=== PATIENT | female | born 1955 | race African-American/Black ===

== ENCOUNTER → 2020-10-10 | Outpatient (CLI) | payer MEDICARE, MEDICAID ==
[~2020-10-10] VITALS: Ht 167.6 cm; Wt 79.4 kg
[~2020-10-10] MED LIST: AMIT50TA3 PO; AMLO-496 PO; ATOR20TA PO; BENA40TA8 PO; CLON-818 PO; HYDR1TAB97 PO; INFL100I IV; METH2.5T PO; METH50IN6 IJ; MORP1TAB12 PO; TRAZ50TA2 PO; ZOLP5TAB5 PO
== END | disposition home or self-care (01) ==
LOC: LAB 11:09 → CATH 10-15 07:00 → EDSTATUS 10-15 14:18
PROVIDERS: ATTEND Internal Medicine Cardiovascular Disease
DX: R94.39 Abnormal result of other cardiovascular function study (principal); I10 Essential (primary) hypertension; M06.9 Rheumatoid arthritis, unspecified; J44.9 Chronic obstructive pulmonary disease, unspecified; F17.200 Nicotine dependence, unspecified, uncomplicated; J36 Peritonsillar abscess; D64.9 Anemia, unspecified; Z82.49 Family history of ischemic heart disease and other diseases of the circulatory system; Z82.5 Family history of asthma and other chronic lower respiratory diseases; Z20.822 Contact with and (suspected) exposure to COVID-19; Z53.8 Procedure and treatment not carried out for other reasons

== ENCOUNTER 2023-08-01 12:25 | Inpatient (IN) | payer MEDICARE, MEDICAID ==
[~2023-08-01] VITALS: Ht 167.6 cm; Wt 87.5 kg
[2023-08-01 01:33] VITALS: BP 137/86; PULSE 93; RESP 18; TEMP 98.6; O2SAT 100
[~2023-08-01 12:25] MED LIST changes: +AMIT50TA10 PO; -AMIT50TA3 PO; -AMLO-496 PO; +AMLO1TAB23 PO; +BENA40TA70 PO; -BENA40TA8 PO; -HYDR1TAB97 PO; -METH2.5T PO; +TRAZ-227 PO; -TRAZ50TA2 PO
[2023-08-01] MEDS ORDERED: ALBUTEROL SULF 2.5 MG/0.5ML(0.5%) NEB SOLN NEB ONE (13:45)
[2023-08-01 14:12] LABS: Basophils # (auto) 0.1 10 ^3/uL (0-0.2); Eosinophils # (auto) 0 10 ^3/uL (0-0.8); Eosinophils % (auto) 0.8 % (0.0-7.0); Lymphocytes # (auto) 2.7 10 ^3/uL (0.4-5.4); Lymphocytes % (auto) 42.9 % (10.0-50.0); Mean Corpuscular Hemoglobin 32.5 pg (28.0-32.0); Mean Corpuscular Hgb Conc. 34.2 g/dL (32.0-36.0); Monocytes # (auto) 0.6 10 ^3/uL (0-1.3); Monocytes % (auto) 9.4 % (0.0-12.0); Neutrophils # (auto) 2.8 10 ^3/uL (1.6-8.6); Neutrophils % (auto) 45.9 % (37.0-80.0); Nucleated Red Blood Cells % 0.3 %; Red Blood Cells 3.37 10^6/uL (4.0-5.20); Red Cell Distribution Width 14.3 % (11.8-14.3); White Blood Cell 6.2 10^3/uL (4.4-10.8)
[2023-08-01 14:16] LABS: Chloride 105 mmol/L (98-107); Potassium 3.8 mmol/L (3.5-5.1); Sodium 140 mmol/L (136-145)
[2023-08-01 14:17] LABS: Anion Gap 9 (5-15); Calcium 9.1 mg/dL (8.5-10.1); Carbon Dioxide 26 mmol/L (20-30)
[2023-08-01 14:22] LABS: BUN/Creatinine Ratio 10.6 (10.0-20.0); Blood Urea Nitrogen 12 mg/dL (9-23); Glucose 104 mg/dL (74-106)
[2023-08-01] MEDS ORDERED: DOCUSATE SOD 100 MG CAP PO PRN (18:30)
[2023-08-01] MEDS ORDERED: ENOXAPARIN SOD 100 MG/1 ML SYRINGE SC ONE (18:30)
[2023-08-01] MEDS ORDERED: ONDANSETRON HCL 4 MG/2 ML VIAL IV PRN (18:30)
[2023-08-01] MEDS ORDERED: ACETAMINOPHEN 325 MG TAB PO PRN (18:30)
[2023-08-01] MEDS ORDERED: IPRATROPIUM BROM 0.5 MG/2.5ML INH SOL NEB PRN (18:30)
[2023-08-01] MEDS ORDERED: FUROSEMIDE 100 MG/10ML VIAL IV ONE (18:30)
[2023-08-01] MEDS ORDERED: NITROGLYCERIN 0.4 MG SL TAB SL PRN (18:30)
[2023-08-01] MEDS ORDERED: ASPirin 81 mg TAB PO ONE (18:30)
[2023-08-01] MEDS ORDERED: MORPHINE SULFATE INJ 2 MG/ml SYRG IV PRN (18:30)
[2023-08-01] MEDS ORDERED: HYDR200T36 PO (18:36)
[2023-08-01] MEDS ORDERED: LEFL10TA17 PO (18:36)
[2023-08-01] MEDS ORDERED: MAGN241.4 PO (18:36)
[2023-08-01] MEDS ORDERED: ZOLPIDEM TARTRATE 5 MG TAB PO PRN (18:45)
[2023-08-01 18:46] VITALS: BP 148/97; PULSE 103; RESP 16; TEMP 97.8; O2SAT 98
[2023-08-01] MEDS ORDERED: HEPARIN SODIUM (PORCINE) 5000 UNITS/ML 1ML VIAL IV ONE (19:15)
[2023-08-01] MEDS ORDERED: HEPARIN DRIP/D5W 100UNITS/ML 250 ML IV SCH (20:00)
[2023-08-01 20:20] LABS: INR 1.13 (0.9-1.15); Partial Thromboplastin Time 24.4 SEC (24.5-34.5); Prothrombin Time 11.8 sec (9.3-11.8)
[2023-08-01 21:10] LABS: Basophils # (auto) 0 10 ^3/uL (0-0.2); Basophils % (auto) 0.6 % (0.0-2.0); Eosinophils # (auto) 0.1 10 ^3/uL (0-0.8); Eosinophils % (auto) 1.7 % (0.0-7.0); Hematocrit 31.9 % (36.0-46.0); Hemoglobin 10.5 g/dL (12.2-16.2); Lymphocytes # (auto) 3.1 10 ^3/uL (0.4-5.4); Mean Corpuscular Hemoglobin 30.5 pg (28.0-32.0); Mean Corpuscular Volume 92.5 fL (80.0-100.0); Monocytes # (auto) 0.6 10 ^3/uL (0-1.3); Neutrophils # (auto) 2.6 10 ^3/uL (1.6-8.6); Neutrophils % (auto) 40.7 % (37.0-80.0); Nucleated Red Blood Cells % 0.8 %; Red Blood Cells 3.45 10^6/uL (4.0-5.20); Red Cell Distribution Width 14.7 % (11.8-14.3); White Blood Cell 6.5 10^3/uL (4.4-10.8)
[2023-08-01 23:38] VITALS: PULSE 96; RESP 13; O2SAT 100
[2023-08-01] MEDS: cloNIDine HCL 0.1 MG TAB PO SCH (23:49)
[2023-08-01] MEDS: AMITRIPTYLINE HCL 25 MG TAB PO SCH (23:50)
[2023-08-02] VITALS (13 sets, daily range): BP systolic 102–132; BP diastolic 64–84; PULSE 68–96; RESP 16–20; TEMP 97.6–98.6; O2SAT 98–100
[2023-08-02] MEDS: HYDROcodone-ACET 5/325MG TAB PO PRN ×2 (01:41→09:08)
[2023-08-02] MEDS: traZODone HCL 50 MG TAB PO SCH ×2 (01:42→22:14)
[2023-08-02] MEDS ORDERED: ENOXAPARIN SOD 100 MG/1 ML SYRINGE SC SCH (06:00)
[2023-08-02] MEDS ORDERED: FUROSEMIDE 20 MG/2 ML VIAL IV SCH (06:00)
[2023-08-02 06:12] LABS: Basophils # (auto) 0 10 ^3/uL (0-0.2); Eosinophils # (auto) 0.1 10 ^3/uL (0-0.8); Lymphocytes # (auto) 2.1 10 ^3/uL (0.4-5.4); Monocytes # (auto) 0.4 10 ^3/uL (0-1.3); Neutrophils # (auto) 1.8 10 ^3/uL (1.6-8.6); White Blood Cell 4.5 10^3/uL (4.4-10.8)
[2023-08-02 06:15] LABS: Basophils % (auto) 0.7 % (0.0-2.0); Hematocrit 25.1 % (36.0-46.0); Hemoglobin 9.5 g/dL (12.2-16.2); Lymphocytes % (auto) 46.9 % (10.0-50.0); Mean Corpuscular Hemoglobin 36.9 pg (28.0-32.0); Mean Corpuscular Volume 97.2 fL (80.0-100.0); Monocytes % (auto) 8.7 % (0.0-12.0); Neutrophils % (auto) 40.7 % (37.0-80.0); Red Blood Cells 2.58 10^6/uL (4.0-5.20); Red Cell Distribution Width 14.2 % (11.8-14.3)
[2023-08-02 06:27] LABS: INR 1.14 (0.9-1.15); Partial Thromboplastin Time 27.6 SEC (24.5-34.5); Prothrombin Time 11.9 sec (9.3-11.8)
[2023-08-02 06:36] LABS: Alanine Aminotransferase 28 U/L (7-40); Albumin 3.2 g/dL (3.2-4.8); Alkaline Phosphatase 75 U/L (46-116); Anion Gap 8 (5-15); Aspartate Aminotransferase 33 U/L (13-40); BUN/Creatinine Ratio 9.5 (10.0-20.0); Blood Urea Nitrogen 11 mg/dL (9-23); Calcium 8.3 mg/dL (8.5-10.1); Carbon Dioxide 27 mmol/L (20-30); Chloride 104 mmol/L (98-107); Cholesterol 137 mg/dL (< 200); Glucose 85 mg/dL (74-106); HDL Cholesterol 33 mg/dL (40-59); LDL Cholesterol 81 mg/dL (< 100); Sodium 139 mmol/L (136-145); Triglycerides 104 mg/dL (< 150)
[2023-08-02 06:37] LABS: Bilirubin, Total 0.5 mg/dL (0.2-1.0); Total Protein 6.1 g/dL (5.7-8.2)
[2023-08-02] MEDS: FUROSEMIDE 40 MG/4 ML VIAL IV SCH ×2 (06:41→18:02)
[2023-08-02] MEDS: BENAZEPRIL HCL 10 MG TAB PO SCH (06:42)
[2023-08-02 06:43] LABS: Mean Corpuscular Hgb Conc. 37.9 g/dL (32.0-36.0)
[2023-08-02] MEDS ORDERED: HEPARIN SODIUM (PORCINE) 5000 UNITS/ML 1ML VIAL IV ONE (07:15)
[2023-08-02] MEDS ORDERED: HEPARIN DRIP/D5W 100UNITS/ML 250 ML IV SCH ×2 (07:15→23:00)
[2023-08-02 08:09] LABS: Platelet Estimate Adequate
[2023-08-02] MEDS: ASPirin 81 mg TAB PO SCH (09:00)
[2023-08-02] MEDS: MAGNESIUM OXIDE 400 MG TAB PO SCH (09:00)
[2023-08-02] MEDS: hydrOXYchloroQUINE SULFATE 200 MG TAB PO SCH (09:00)
[2023-08-02] MEDS: cloNIDine HCL 0.1 MG TAB PO SCH ×2 (09:02→22:00)
[2023-08-02] MEDS ORDERED: PANTOPRAZOLE 40 MG TAB PO SCH (10:00)
[2023-08-02] MEDS ORDERED: POTASSIUM CHL 20 Meq TABLET PO ONE (10:00)
[2023-08-02] MEDS ORDERED: ALBUTEROL SULF 2.5 MG/0.5ML(0.5%) NEB SOLN NEB PRN (10:45)
[2023-08-02] MEDS: IPRATROPIUM BROM 0.5 MG/2.5ML INH SOL NEB SCH ×2 (11:44→19:05)
[2023-08-02] MEDS: ALBUTEROL SULF 2.5 MG/0.5ML(0.5%) NEB SOLN NEB PRN ×2 (11:44→19:05)
[2023-08-02] MEDS: OXYCODONE W/ ACETAMINOPHEN 5/325MG TABLET PO PRN ×2 (12:27→23:02)
[2023-08-02 15:17] LABS: Urine Bacteria NONE SEEN /hpf (None Seen); Urine Blood TRACE /uL (Negative); Urine Clarity Clear (Clear); Urine Color Colorless (Yellow); Urine Hyaline Cast FEW /lpf (0 - 2); Urine Protein, UAD 2+ (Negative); Urine Specific Gravity 1.028 (1.001-1.035); Urine Urobilinogen Normal (Negative); Urine WBC 3 /hpf (0 - 5); Urine pH 5.5 (5.0-8.0)
[2023-08-02] MEDS ORDERED: PERCOT PO (16:12)
[2023-08-02] MEDS: ATORVASTATIN 20 MG TAB PO SCH (17:57)
[2023-08-02 21:50] LABS: INR 1.16 (0.9-1.15); Prothrombin Time 12.1 sec (9.3-11.8)
[2023-08-02 22:00] LABS: Partial Thromboplastin Time 126.1 SEC (24.5-34.5)
[2023-08-02] MEDS: POTASSIUM CHL 20 Meq TABLET PO SCH (22:14)
[2023-08-02] MEDS: AMITRIPTYLINE HCL 25 MG TAB PO SCH (22:14)
[2023-08-03] VITALS (26 sets, daily range): BP systolic 91–122; BP diastolic 61–84; PULSE 79–99; RESP 14–22; TEMP 97.7–98.1; O2SAT 96–100
[2023-08-03] MEDS: FUROSEMIDE 40 MG/4 ML VIAL IV SCH (05:24)
[2023-08-03] MEDS: BENAZEPRIL HCL 10 MG TAB PO SCH (06:28)
[2023-08-03] MEDS: ALBUTEROL SULF 2.5 MG/0.5ML(0.5%) NEB SOLN NEB PRN (06:29)
[2023-08-03] MEDS: IPRATROPIUM BROM 0.5 MG/2.5ML INH SOL NEB SCH ×3 (06:30→19:15)
[2023-08-03 07:05] LABS: Anion Gap 7 (5-15); Carbon Dioxide 29 mmol/L (20-30); Chloride 103 mmol/L (98-107); Potassium 3.6 mmol/L (3.5-5.1); Sodium 139 mmol/L (136-145)
[2023-08-03 07:06] LABS: Calcium 8.3 mg/dL (8.7-10.4)
[2023-08-03 07:11] LABS: BUN/Creatinine Ratio 9.4 (10.0-20.0); Blood Urea Nitrogen 12 mg/dL (9-23); Glucose 97 mg/dL (74-106); Magnesium 1.7 mg/dL (1.6-2.6)
[2023-08-03 07:39] LABS: INR 1.19 (0.9-1.15); Prothrombin Time 12.4 sec (9.3-11.8)
[2023-08-03 07:43] LABS: Partial Thromboplastin Time > 139.0 SEC (24.5-34.5)
[2023-08-03 07:47] LABS: Basophils # (auto) 0.1 10 ^3/uL (0-0.2); Basophils % (auto) 1.4 % (0.0-2.0); Eosinophils # (auto) 0.2 10 ^3/uL (0-0.8); Eosinophils % (auto) 4.6 % (0.0-7.0); Hematocrit 29.3 % (36.0-46.0); Hemoglobin 9.4 g/dL (12.2-16.2); Lymphocytes # (auto) 2.4 10 ^3/uL (0.4-5.4); Lymphocytes % (auto) 54.3 % (10.0-50.0); Mean Corpuscular Hemoglobin 29.8 pg (28.0-32.0); Mean Corpuscular Hgb Conc. 32.2 g/dL (32.0-36.0); Mean Corpuscular Volume 92.5 fL (80.0-100.0); Monocytes # (auto) 0.4 10 ^3/uL (0-1.3); Neutrophils # (auto) 1.3 10 ^3/uL (1.6-8.6); Neutrophils % (auto) 29.7 % (37.0-80.0); Nucleated Red Blood Cells % 0.3 %; Red Blood Cells 3.17 10^6/uL (4.0-5.20); Red Cell Distribution Width 14.6 % (11.8-14.3); White Blood Cell 4.3 10^3/uL (4.4-10.8)
[2023-08-03] MEDS: MAGNESIUM OXIDE 400 MG TAB PO SCH (08:57)
[2023-08-03] MEDS: POTASSIUM CHL 20 Meq TABLET PO SCH (08:58)
[2023-08-03] MEDS: ASPirin 81 mg TAB PO SCH (08:58)
[2023-08-03] MEDS: hydrOXYchloroQUINE SULFATE 200 MG TAB PO SCH (09:03)
[2023-08-03] MEDS: OXYCODONE W/ ACETAMINOPHEN 5/325MG TABLET PO PRN ×2 (09:03→18:47)
[2023-08-03] MEDS: cloNIDine HCL 0.1 MG TAB PO SCH ×2 (09:03→22:00)
[2023-08-03] MEDS ORDERED: HEPARIN DRIP/D5W 100UNITS/ML 250 ML IV SCH (09:15)
[2023-08-03] MEDS ORDERED: IODIXANOL 320MG/ML 100ML BTL IV ONE (14:27)
[2023-08-03] MEDS ORDERED: HEPARIN IN NS 1000Units/500mL 1,500 ML ONE (14:27)
[2023-08-03] MEDS ORDERED: LIDOCAINE 2%HCL (LOCAL ANESTH.) INJ 20ML MDV ONE (14:27)
[2023-08-03] MEDS ORDERED: ANGIOMAX 250 MG VIAL IV ONE (15:02)
[2023-08-03] MEDS ORDERED: HEPARIN SODIUM (PORCINE) 5000 UNITS/ML 1ML VIAL ONE (15:02)
[2023-08-03] MEDS ORDERED: MIDAZOLAM HCL 2MG/2ML 2ml VIAL (1mg/ml) ONE (15:03)
[2023-08-03] MEDS ORDERED: VERAPAMIL 2.5MG/ML INJ 2ML VIAL IV ONE (15:03)
[2023-08-03] MEDS ORDERED: fentaNYL CITRATE 100 MCG/2 ML VL ONE (15:03)
[2023-08-03] MEDS ORDERED: SODIUM CHL 0.9% 0 ML ONE (15:04)
[2023-08-03] MEDS: RIVAROXABAN 20 MG TAB PO SCH (18:33)
[2023-08-03] MEDS: ATORVASTATIN 20 MG TAB PO SCH (18:33)
[2023-08-03 18:59] LABS: INR 1.18 (0.9-1.15); Prothrombin Time 12.3 sec (9.3-11.8)
[2023-08-03 19:04] LABS: Partial Thromboplastin Time > 139.0 SEC (24.5-34.5)
[2023-08-03] MEDS: traZODone HCL 50 MG TAB PO SCH (22:11)
[2023-08-03] MEDS: AMITRIPTYLINE HCL 25 MG TAB PO SCH (22:12)
[2023-08-04] VITALS (15 sets, daily range): BP systolic 108–120; BP diastolic 67–81; PULSE 66–106; RESP 16–22; TEMP 97.6–99.1; O2SAT 95–100
[2023-08-04] MEDS: OXYCODONE W/ ACETAMINOPHEN 5/325MG TABLET PO PRN ×4 (01:13→23:49)
[2023-08-04 06:08] LABS: Anion Gap 5 (5-15); Carbon Dioxide 29 mmol/L (20-30); Chloride 102 mmol/L (98-107); Sodium 136 mmol/L (136-145)
[2023-08-04 06:10] LABS: Calcium 8.5 mg/dL (8.5-10.1)
[2023-08-04 06:15] LABS: BUN/Creatinine Ratio 9.8 (10.0-20.0); Blood Urea Nitrogen 12 mg/dL (9-23); Glucose 99 mg/dL (74-106)
[2023-08-04] MEDS: POTASSIUM CHL 20 Meq TABLET PO SCH (06:22)
[2023-08-04] MEDS: BENAZEPRIL HCL 10 MG TAB PO SCH (06:23)
[2023-08-04] MEDS: FUROSEMIDE 40 MG/4 ML VIAL IV SCH (06:23)
[2023-08-04] MEDS: IPRATROPIUM BROM 0.5 MG/2.5ML INH SOL NEB SCH ×3 (07:13→18:11)
[2023-08-04] MEDS: ALBUTEROL SULF 2.5 MG/0.5ML(0.5%) NEB SOLN NEB PRN (07:13)
[2023-08-04] MEDS: hydrOXYchloroQUINE SULFATE 200 MG TAB PO SCH (08:05)
[2023-08-04] MEDS: cloNIDine HCL 0.1 MG TAB PO SCH ×2 (08:07→22:05)
[2023-08-04] MEDS: MAGNESIUM OXIDE 400 MG TAB PO SCH (08:07)
[2023-08-04 09:51] LABS: Hepatitis B Surface Antigen Negative (Negative)
[2023-08-04] MEDS: methylPREDNISolone SOD SUCC 40 MG/ML VL IV SCH ×2 (10:00→21:58)
[2023-08-04] MEDS ORDERED: methylPREDNISolone SOD SUCC 40 MG/ML VL IV ONE (10:00)
[2023-08-04] MEDS ORDERED: levoFLOXacin 500 MG TAB PO SCH (10:00)
[2023-08-04 10:12] LABS: Hepatitis C Antibody Negative (Negative)
[2023-08-04] MEDS: ATORVASTATIN 20 MG TAB PO SCH (17:25)
[2023-08-04] MEDS: RIVAROXABAN 20 MG TAB PO SCH (17:25)
[2023-08-04] MEDS: AMITRIPTYLINE HCL 25 MG TAB PO SCH (21:54)
[2023-08-04] MEDS: DOXYCYCLINE 100 MG TAB/CAP PO SCH (22:05)
[2023-08-04] MEDS: traZODone HCL 50 MG TAB PO SCH (23:49)
[2023-08-05] VITALS (10 sets, daily range): BP systolic 116–120; BP diastolic 71–83; PULSE 82–96; RESP 16–20; TEMP 97.6–98.1; O2SAT 98–100
[2023-08-05] MEDS: IPRATROPIUM BROM 0.5 MG/2.5ML INH SOL NEB SCH ×2 (06:01→11:49)
[2023-08-05] MEDS: BENAZEPRIL HCL 10 MG TAB PO SCH (06:33)
[2023-08-05] MEDS: POTASSIUM CHL 20 Meq TABLET PO SCH (06:33)
[2023-08-05] MEDS: FUROSEMIDE 40 MG/4 ML VIAL IV SCH (06:34)
[2023-08-05 07:31] LABS: Anion Gap 8 (5-15); Carbon Dioxide 24 mmol/L (20-30); Chloride 100 mmol/L (98-107); Potassium 5.3 mmol/L (3.5-5.1); Sodium 132 mmol/L (136-145)
[2023-08-05 07:33] LABS: Calcium 8.9 mg/dL (8.5-10.1)
[2023-08-05 07:38] LABS: BUN/Creatinine Ratio 17.7 (10.0-20.0); Blood Urea Nitrogen 20 mg/dL (9-23); Glucose 126 mg/dL (74-106)
[2023-08-05] MEDS: OXYCODONE W/ ACETAMINOPHEN 5/325MG TABLET PO PRN (09:34)
[2023-08-05] MEDS: methylPREDNISolone SOD SUCC 40 MG/ML VL IV SCH (09:34)
[2023-08-05] MEDS: cloNIDine HCL 0.1 MG TAB PO SCH (09:35)
[2023-08-05] MEDS: MAGNESIUM OXIDE 400 MG TAB PO SCH (09:35)
[2023-08-05] MEDS: hydrOXYchloroQUINE SULFATE 200 MG TAB PO SCH (09:35)
[2023-08-05] MEDS: DOXYCYCLINE 100 MG TAB/CAP PO SCH (09:35)
[2023-08-05] MEDS ORDERED: AZITHROMYCIN 250 MG TAB PO SCH (10:00)
[2023-08-05] MEDS ORDERED: SODIUM ZIRCONIUM CYCL 10 GM PAK PO ONE (11:30)
[2023-08-05] MEDS ORDERED: DOX100T PO (11:34)
[2023-08-05] MEDS ORDERED: PRED20TA2 PO (11:34)
[2023-08-05] MEDS ORDERED: RIV20T PO (11:34)
[2023-08-05] MEDS: ATORVASTATIN 20 MG TAB PO SCH (18:10)
[2023-08-05] MEDS: RIVAROXABAN 20 MG TAB PO SCH (18:10)
[2023-08-09 16:07] LABS: Vitamin B1, Whole Blood 50.8 nmol/L (66.5-200.0)
== END 2023-08-05 19:00 | disposition home or self-care (01) | DRG 177 ==
LOC: ER 12:25 → TELE 18:24 → TELE-CENTR 23:44
PROVIDERS: ADMIT Nurse Practitioner Family; ATTEND Internal Medicine
PROC: 4A023N7 Measurement of Cardiac Sampling and Pressure, Left Heart, Percutaneous Approach (ICD-10-PCS; principal; 2023-08-03)
PROC: B211YZZ Fluoroscopy of Multiple Coronary Arteries using Other Contrast (ICD-10-PCS; 2023-08-03)
PROC: B215YZZ Fluoroscopy of Left Heart using Other Contrast (ICD-10-PCS; 2023-08-03)
DX: J15.69 Pneumonia due to other Gram-negative bacteria (principal); I21.A1 Myocardial infarction type 2; I50.33 Acute on chronic diastolic (congestive) heart failure; J96.20 Acute and chronic respiratory failure, unspecified whether with hypoxia or hypercapnia; I13.0 Hypertensive heart and chronic kidney disease with heart failure and stage 1 through stage 4 chronic kidney disease, or unspecified chronic kidney disease; J44.1 Chronic obstructive pulmonary disease with (acute) exacerbation; J44.0 Chronic obstructive pulmonary disease with (acute) lower respiratory infection; J84.9 Interstitial pulmonary disease, unspecified; J15.9 Unspecified bacterial pneumonia; E66.9 Obesity, unspecified; E78.5 Hyperlipidemia, unspecified; M06.9 Rheumatoid arthritis, unspecified; J43.8 Other emphysema; N18.9 Chronic kidney disease, unspecified; I73.9 Peripheral vascular disease, unspecified; R73.03 Prediabetes; G47.00 Insomnia, unspecified; F41.9 Anxiety disorder, unspecified; Z90.49 Acquired absence of other specified parts of digestive tract; Z79.01 Long term (current) use of anticoagulants; Z86.711 Personal history of pulmonary embolism; Z68.31 Body mass index [BMI] 31.0-31.9, adult; Z86.718 Personal history of other venous thrombosis and embolism
CPT/HCPCS: 36415; 71045; 71275; 80048; 80053; 80061; 81001; 83036; 83735; 83880; 84132; 84425; 84443; 84484; 85025; 85379; 85610; 85730; 86803; 86850; 86900; 86901; 87340; 93005; 93306; 93458; 93970; 94640; 97163; 99152; 99291; G0378; J2250; Q9967

== ENCOUNTER 2024-09-01 22:22 | Inpatient (IN) | payer MEDICARE, MEDICAID ==
[~2024-09-01] VITALS: Ht 167.6 cm; Wt 80.1 kg
[~2024-09-01 22:22] MED LIST changes: -AMIT50TA10 PO; +AMIT50TA12 PO; -AMLO1TAB23 PO; -BENA40TA70 PO; +BENA40TA71 PO; +DOX100T PO; +HYDR200T36 PO; -INFL100I IV; +LEFL10TA17 PO; +MAGN241.4 PO; -METH50IN6 IJ; -MORP1TAB12 PO; +PERCOT PO; +PRED20TA2 PO; +RIV20T PO
--- NOTE | 2024-09-01 23:49 | ED.PDOC ---
SOB-HPI HPI Comments 69-year-old female came to ER for shortness of breath. Patient does have history of COPD, currently at 5 liters/minute, saturating at 98% at 5lpm. Complaining of shortness a breath, chest tightness, in worsening by pedal edema for the past 2 days. Noted shortness of breath on exertion. Patient never diagnosed with congestive heart failure. 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 History Family History Family History: Reviewed,noncontributory to illness Social History Smoker: Cigarettes Alcohol: Denies ETOH Use Drugs: Denies Drug Use Lives In: Home Constitutional: denies: chills, diaphoresis, fatigue, fever, malaise, sweats, weakness, others EENTM: denies: blurred vision, double vision, ear bleeding, ear discharge, ear drainage, ear pain, ear ringing, eye pain, eye redness, hearing loss, mouth pain, mouth swelling, nasal discharge, nose bleeding, nose congestion, nose pain, photophobia, tearing, throat pain, throat swelling, voice changes, others Respiratory: reports: orthopnea, SOB at rest, shortness of breath, SOB with excertion; denies: cough, hemoptysis, stridor, wheezing, others Cardiovascular: reports: chest pain, edema; denies: dizzy spells, diaphoresis, Dyspnea on exertion, irregular heart beat, left arm pain, lightheadedness, palpitations, PND, syncope, others Gastrointestinal: denies: abdomen distended, abdominal pain, blood streaked bowels, constipated, diarrhea, dysphagia, difficulty swallowing, hematemesis, melena, nausea, poor appetite, poor fluid intake, rectal bleeding, rectal pain, vomiting, others Genitourinary: denies: abnormal vagina bleeding, burning, dyspareunia, dysuria, flank pain, frequency, hematuria, incontinence, pain, , vagina discharge, urgency, others Neurological: denies: dizziness, fainting, headache, left sided numbness, left sided weakness, numbness, paresthesia, pre-existing deficit, right sided numbness, right sided weakness, seizure, speech problems, tingling, tremors, weakness, others Musculoskeletal: denies: back pain, gout, joint pain, joint swelling, muscle pain, muscle stiffness, neck pain, others Integumetry: denies: bruises, change in color, change in hair/nails, dryness, laceration, lesions, lumps, rash, wounds, others Allergic/Immunocompromised: denies: Difficulty Healing, Frequent Infections, Hives, Itching, others Hematologic/Lymphatic: denies: anemia, blood clots, easy bleeding, easy bruising, swollen glands, others Endocrine: denies: excessive hunger, excessive sweating, excessive thirst, excessive urination, flushing, intolerance to cold, intolerance to heat, unexplained weight gain, unexplained weight loss, others Psychiatric: denies: anxiety, bipolar disorder, depression, hopeless, panic disorder, schizophrenia, sleepless, suicidal, others Physical Exam General Appearance: Moderate Distress, Obese HEENT: Normal ENT Inspection, Pharynx Normal, TMs Normal Neck: Full Range of Motion, Non-Tender, Normal, Normal Inspection Respiratory: Chest Non-Tender, Decreased Breath Sounds, Lungs Clear, No Accessory Muscle Use, Other (Slightly labored breathing) Cardiovascular: No JVD, No Murmur, No Gallop, Normal Peripheral Pulses, Regular Rate/Rhythm, Other (Lower extremity edema) Breast Exam: Deferred Gastrointestinal: No Organomegaly, Non Tender, No Pulsatile Mass, Normal Bowel Sounds, Soft Genitalia: Deferred Pelvic: Deferred Rectal: Deferred Extremities: No calf tenderness, Normal capillary refill, Normal inspection, Normal range of motion, Non-tender, No pedal edema Musculoskeletal : Apperance: Normal 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 Was a procedure done?: No Differential Dx Differential Diagnosis: Anxiety, Asthma, CHF, COPD, Myocardial infarction, Panic Attack, Pneumonia, Respiratory Distress X-Ray, Labs, Meds, VS Vital Signs Date Time Temp Pulse Resp B/P (MAP) Pulse Ox O2 Delivery O2 Flow Rate FiO2 09/02/24 03:51 97.7 86 22 140/93 (109) 99 97.7 09/02/24 03:00 Nasal Cannula* 5 40 09/01/24 23:49 96 09/01/24 22:50 96 09/01/24 22:25 98 Nasal Cannula* 5 40 09/01/24 22:25 97.7 90 18 138/83 (101) 98 Lab Test 09/02/24 04:28 09/02/24 04:01 Range/Units White Blood Count Pending Red Blood Count Pending Hemoglobin Pending Hematocrit Pending Mean Corpuscular Volume Pending Mean Corpuscular Hemoglobin Pending Mean Corpuscular Hemoglobin Concent Pending Red Cell Distribution Width Pending Platelet Count Pending Mean Platelet Volume Pending Neutrophils (%) (Auto) Pending Lymphocytes (%) (Auto) Pending Monocytes (%) (Auto) Pending Basophils (%) (Auto) Pending Neutrophils # (Auto) Pending Lymphocytes # (Auto) Pending Monocytes # (Auto) Pending Prothrombin Time Pending Prothrombin Time INR Pending Activated Partial Thromboplast Time Pending Sodium Level Pending Potassium Level Pending Chloride Level Pending Carbon Dioxide Level Pending Anion Gap Pending Blood Urea Nitrogen Pending Creatinine Pending Glomerular Filtration Rate Calc Pending BUN/Creatinine Ratio Pending Serum Glucose Pending Calcium Level Pending Magnesium Level Pending Total Bilirubin Pending Aspartate Amino Transferase (AST) Pending Alanine Aminotransferase (ALT) Pending Alkaline Phosphatase Pending Troponin I High Sensitivity Pending B-Type Natriuretic Peptide Pending Total Protein Pending Albumin Pending Urine Color Yellow Yellow Urine Clarity Clear Clear Urine pH 6.5 5.0-9.0 Urine Specific [place] 1.036 H 1.001-1.035 Urine Protein 3+ H Negative Urine Ketones Trace Negative Urine Blood 1+ H Negative /uL Urine Nitrite Negative Negative Urine Bilirubin Negative Negative Urine Urobilinogen 3 H Negative mg/dL Urine Leukocyte Esterase Negative Negative /uL Urine RBC 49 0 - 4 /hpf Urine Microscopic WBC 21 H 0-5 /HPF Urine Squamous Epithelial Cells Mod <5 /hpf Urine Transitional Epithelial Cells Few <2 /hpf Urine Renal Epithelial Cells Few None Seen /hpf Urine Bacteria Few H None Seen /hpf Urine Hyaline Casts Many 0 - 2 /lpf Urine Mucus Few None Seen Urine Glucose Normal Normal mg/dL PROCEDURE(s): CXRP - CHEST PORTABLE REASON: SOB ORDER NUMBER(s): [id number], ACCESSION NUMBER(s): [id number] Examination: CXRP Clinical Indication: SOB Comparison: None. Technique: Frontal view of chest radiograph Findings: Haziness seen in the right lower zone. Cardiomegaly is noted No acute osseous abnormality. Impression: 1. Right lower zone haziness, likely infiltrates/artifacts were due to overlying soft tissues. Labs are pending. The patient received DuoNeb Rocephin and Solu-Medrol for acute exacerbation of COPD requiring high oxygen levels. The patient will be admitted to the hospitalist for further evaluation and care. Time of 1ST Reevaluation: 23:43 Reevaluation 1ST: Unchanged Patient Education/Counseling: Diagnosis, Treatment Family Education/Counseling: No Family Present Departure 1 Departure Time of Disposition: 04:51 Impression: Primary Impression: ACS (acute coronary syndrome) Additional Impressions: COPD exacerbation CHF (congestive heart failure) Qualified Codes: I50.9 - Heart failure, unspecified Peripheral edema Disposition: ADMITTED INPATIENT Admit to: Tele Condition: Guarded Critical Care Note Critical Care Time?: Yes (35 min-critical care time only) Critical care comment: Shortness of breath Stability Stability form required: No Heart Score Heart Score: Heart Score Response (Comments) Value History Moderate Suspicious 1 EKG Repolarization Disturb 1 Age >65 2 Risk Factors >3 or Hx ASHD 2 Troponin Normal limit 0 Total 6 I personally scribed for SHADIA CROCKETT MD ([email or web address]) on 09/01/24 at 23:49. Electronically submitted by Miguel Angel Jhaveri ([email or web address]). I personally scribed for SHADIA CROCKETT MD ([email or web address]) on 09/02/24 at 04:42. Electronically submitted by Miguel Angel Jhaveri ([email or web address]). SHADIA CROCKETT MD Sep 01, 2024 23:49
[2024-09-02] VITALS (9 sets, daily range): BP systolic 130–148; BP diastolic 79–96; PULSE 86–99; RESP 15–19; TEMP 97.6–98; O2SAT 99–100
--- NOTE | 2024-09-02 03:52 | DVH ---
Examination: CXRP Clinical Indication: SOB Comparison: None. Technique: Frontal view of chest radiograph Findings: Haziness seen in the right lower zone. Cardiomegaly is noted No acute osseous abnormality. Impression: 1. Right lower zone haziness, likely infiltrates/artifacts were due to overlying soft tissues. 2. Cardiomegaly. Electronically Signed 09/02/2024 03:51 Melyssa Flynn
[2024-09-02 04:38] LABS: Urine Bacteria FEW /hpf (None Seen); Urine Blood 1+ /uL (Negative); Urine Clarity Clear (Clear); Urine Color Yellow (Yellow); Urine Hyaline Cast MANY /lpf (0 - 2); Urine Mucus FEW (None Seen); Urine Protein, UAD 3+ (Negative); Urine Specific Gravity 1.036 (1.001-1.035); Urine Squamous Epithelial Cell MOD /hpf (<5); Urine Urobilinogen 3 mg/dL (Negative); Urine WBC 21 /HPF (0-5); Urine pH 6.5 (5.0-9.0)
[2024-09-02 05:17] LABS: INR 1.29 (0.9-1.15); Partial Thromboplastin Time 30.2 SEC (24.5-34.5); Prothrombin Time 13.3 sec (9.3-11.8)
[2024-09-02 05:30] LABS: Albumin 3.7 g/dL (3.2-4.8); Alkaline Phosphatase 101 U/L (46-116); Carbon Dioxide 25 mmol/L (20-31); Magnesium 1.7 mg/dL (1.6-2.6)
[2024-09-02 05:31] LABS: Anion Gap 7 (5-15); BUN/Creatinine Ratio 9.8 (10.0-20.0); Blood Urea Nitrogen 11 mg/dL (9-23); Sodium 140 mmol/L (136-145); Total Protein 6.2 g/dL (5.7-8.2)
[2024-09-02 05:32] LABS: Bilirubin, Total 0.5 mg/dL (0.2-1.0)
[2024-09-02 05:57] LABS: Alanine Aminotransferase 47 U/L (7-40); Aspartate Aminotransferase 53 U/L (13-40); Chloride 108 mmol/L (98-107); Glucose 118 mg/dL (74-106); Potassium 3.4 mmol/L (3.5-5.1)
[2024-09-02 07:02] LABS: Basophils # (auto) 0 10 ^3/uL (0-0.2); Basophils % (auto) 0.8 % (0.0-2.0); Eosinophils # (auto) 0.1 10 ^3/uL (0-0.8); Eosinophils % (auto) 2.9 % (0.0-7.0); Hematocrit 32.9 % (36.0-46.0); Hemoglobin 10.7 g/dL (12.2-16.2); Mean Corpuscular Hemoglobin 31.5 pg (28.0-32.0); Mean Corpuscular Volume 96.5 fL (80.0-100.0); Monocytes # (auto) 0.3 10 ^3/uL (0-1.3); Monocytes % (auto) 7.9 % (0.0-12.0); Neutrophils # (auto) 1.6 10 ^3/uL (1.6-8.6); Neutrophils % (auto) 38.4 % (37.0-80.0); Nucleated Red Blood Cells % 0.4 %; Platelet Count (auto) 149 10^3/uL (140-450); Red Blood Cells 3.41 10^6/uL (4.0-5.20); Red Cell Distribution Width 16.5 % (11.8-14.3); White Blood Cell 4.1 10^3/uL (4.4-10.8)
[2024-09-02 07:06] LABS: Mean Corpuscular Hgb Conc. 32.7 g/dL (32.0-36.0)
--- NOTE | 2024-09-02 09:37 | DVHHP2 ---
History of Present Illness Reason for Visit: sob and cp History of Present Illness 69-year-old female past medical history COPD on 5 L nasal cannula at home hypertension insomnia hyperlipidemia normal, MO, rheumatoid arthritis, on Xarelto for a blood clot in the legs and she states in her throat surgical history gallbladder surgery chief complaint patient was comes in with shortness of the breath chest pain and swelling to her legs has been going on for two days. Patient states he was shortness of the breath on exertion. She has been goes to have a follow up appointment with Dr. Michelle this coming up Tuesday but she states her symptoms were so bad that she had to come to the ER for evaluation. Patient states she was taking her medications as prescribed. When evaluating patient's chart to imaging it appears patient had an echocardiogram last year August 02, 2023 EF was 50% at that time CBC was unremarkable hemoglobin was 10.7 32.9 potassium was 3.4 chloride was 108 creatinine was 1.12 glucose was 118 AST was 53 ALT was 47 troponin was positive BNP was 998. Chest x-ray showed right lung zone pneumonia. With these findings we will admit and ask for Cardiology evaluation we will provide medication for heart failure Past Medical History See HPI above Past Surgical History See HPI above Family History Reviewed, non-contributory to the management of this case. Past Social History The patient lives at home, denies smoking, alcohol or illicit drugs abuse. Review of Systems Constitutional: No: Fever, Chills, Sweats, Weakness, Malaise, Other Eyes: No: Pain, Vision change, Conjunctivae inflammation, Eyelid inflammation, Other, Redness ENT: No: Ear pain, Ear discharge, Nose pain, Nose discharge, Nose congestion, Mouth pain, Mouth swelling, Throat pain, Throat swelling, Other Respiratory: Shortness of breath, SOB with excertion; No: Cough, Dry, Wheezing, Hemoptysis, Pleuritic Pain, Sputum, Wheezing, Other Cardiovascular: No: Chest Pain, Palpitations, Orthopnea, Paroxysmal Noc. Dys pnea, Edema, Lt Headedness, Other Gastrointestinal: No: Nausea, Vomiting, Abdominal Pain, Diarrhea, Constipation, Melena, Hematochezia, Other Genitourinary: No Dysuria, No Frequency, No Incontinence, No Hematuria, No Retention, No Other Musculoskeletal: No: other, neck pain, shoulder pain, arm pain, back pain, hand pain, leg pain, foot pain Skin: No: Rash, Lesions, Jaundice, Bruising, Other Neurological: No: Weakness, Numbness, Incoordination, Change in speech, Confusion, Seizures, Other Allergies: Coded Allergies: NO KNOWN ALLERGIES (Unverified , 10/10/20) Exam Vital Signs Vital Signs Date Time Temp Pulse Resp B/P (MAP) Pulse Ox O2 Delivery O2 Flow Rate FiO2 09/02/24 08:58 86 15 100 Nasal Cannula* 6 44 09/02/24 08:00 97.8 152/97 (115) 97.8 General Appearance: Alert, Oriented X3, Cooperative, mild distress HEENT: Atraumatic, PERRLA, EOMI, Mucous membr. moist/pink Respiratory: Normal air movement, Other (Coarse wheezes throughout) Cardiovascular: Regular rate, Normal S1, Normal S2, No murmurs Abdominal: Normal bowel sounds, Soft, No tenderness, No hepatospenomegaly, No masses Extremities: No clubbing, No cyanosis, No edema, Normal pulses, No tenderness/swelling Skin: No rashes, No breakdown, No significant lesion Neuro: Other (neuro non focal spencer equally strong ) Psych/Mental Status: Mental status NL, Mood NL Labs/Xrays Chest x-ray shows right lung pneumonia and cardiomegaly I reviewed labs, imaging CT scan abdomen pelvis, EKG and all diagnostic studies on this patient from ED records and the medical chart Labs Test 09/02/24 04:28 09/02/24 04:01 Range/Units White Blood Count 4.1 L 4.4-10.8 10^3/uL Red Blood Count 3.41 L 4.0-5.20 10^6/uL Hemoglobin 10.7 L 12.2-16.2 g/dL Hematocrit 32.9 L 36.0-46.0 % Mean Corpuscular Volume 96.5 80.0-100.0 fL Mean Corpuscular Hemoglobin 31.5 28.0-32.0 pg Mean Corpuscular Hemoglobin Concent 32.7 32.0-36.0 g/dL Red Cell Distribution Width 16.5 H 11.8-14.3 % Platelet Count 149 140-450 10^3/uL Mean Platelet Volume 9.1 6.9-10.8 fL Neutrophils (%) (Auto) 38.4 37.0-80.0 % Lymphocytes (%) (Auto) 50.0 10.0-50.0 % Monocytes (%) (Auto) 7.9 0.0-12.0 % Eosinophils (%) (Auto) 2.9 0.0-7.0 % Basophils (%) (Auto) 0.8 0.0-2.0 % Neutrophils # (Auto) 1.6 1.6-8.6 10 ^3/uL Lymphocytes # (Auto) 2.0 0.4-5.4 10 ^3/uL Monocytes # (Auto) 0.3 0-1.3 10 ^3/uL Eosinophils # (Auto) 0.1 0-0.8 10 ^3/uL Basophils # (Auto) 0 0-0.2 10 ^3/uL Nucleated Red Blood Cells 0.4 % Prothrombin Time 13.3 H 9.3-11.8 sec Prothrombin Time INR 1.29 H 0.9-1.15 Activated Partial Thromboplast Time 30.2 24.5-34.5 SEC Sodium Level 140 136-145 mmol/L Potassium Level 3.4 L 3.5-5.1 mmol/L Chloride Level 108 H 98-107 mmol/L Carbon Dioxide Level 25 20-31 mmol/L Anion Gap 7 5-15 Blood Urea Nitrogen 11 9-23 mg/dL Creatinine 1.12 H 0.550-1.02 mg/dL Glomerular Filtration Rate Calc 54 >90 mL/min BUN/Creatinine Ratio 9.8 L 10.0-20.0 Serum Glucose 118 H 74-106 mg/dL Calcium Level 9.0 8.7-10.4 mg/dL Magnesium Level 1.7 1.6-2.6 mg/dL Total Bilirubin 0.5 0.2-1.0 mg/dL Aspartate Amino Transferase (AST) 53 H 13-40 U/L Alanine Aminotransferase (ALT) 47 H 7-40 U/L Alkaline Phosphatase 101 46-116 U/L Troponin I High Sensitivity 91 *H </=34 ng/L B-Type Natriuretic Peptide 993.85 0-100 pg/mL Total Protein 6.2 5.7-8.2 g/dL Albumin 3.7 3.2-4.8 g/dL Urine Color Yellow Yellow Urine Clarity Clear Clear Urine pH 6.5 5.0-9.0 Urine Specific [place] 1.036 H 1.001-1.035 Urine Protein 3+ H Negative Urine Ketones Trace Negative Urine Blood 1+ H Negative /uL Urine Nitrite Negative Negative Urine Bilirubin Negative Negative Urine Urobilinogen 3 H Negative mg/dL Urine Leukocyte Esterase Negative Negative /uL Urine RBC 49 0 - 4 /hpf Urine Microscopic WBC 21 H 0-5 /HPF Urine Squamous Epithelial Cells Mod <5 /hpf Urine Transitional Epithelial Cells Few <2 /hpf Urine Renal Epithelial Cells Few None Seen /hpf Urine Bacteria Few H None Seen /hpf Urine Hyaline Casts Many 0 - 2 /lpf Urine Mucus Few None Seen Urine Glucose Normal Normal mg/dL Assessment/Plan Assessment/Plan acute community bacterial acquired pna found on cxr ordered ceftriaxone and azithromax o2 to keep sats >92% acute diastolic systolic heart failure bnp elevated cxr cardiomegaly ordered lasix bid ordered echo fu results ordered cards consult fu results strict i/o's acute copd exacerbation ordered albuterol/atrovent prn sob pulm consult fu recs acute unstable angina r/o nstemi with hx of mi current trop elevated ekg no stemi ordered asa and atorvastatin ordered cards consult fu results cont home dose xarelto acute hypokalemia ordered mag and phos fu results acute transaminitis acute felisa Acute bilateral lower extremity edema Order ultrasound rule out DVT Order Lasix Elevation to help with swelling chronic problems htn mi arthritis cont home medication hld RA cont home medication including prednisone daily fen/ppx diet hl scd protonix xarelto plan admit to tele cards consult antibiotics for pna Plan discussed with: Patient Date of Service: Sep 02, 2024 Billing Provider: ALLYSON LAIRD DNP Common Visit Codes: [id number] INP/OBS CARE (HIGH) ALLYSON LAIRD DNP Sep 02, 2024 09:37
[2024-09-02] MEDS ORDERED: GABA-1250 PO (11:11)
[2024-09-02] MEDS ORDERED: ACETAMINOPHEN 325 MG TAB PO PRN (11:15)
[2024-09-02] MEDS ORDERED: ONDANSETRON HCL 4 MG/2 ML VIAL IV PRN (11:15)
[2024-09-02] MEDS ORDERED: NITROGLYCERIN 0.4 MG SL TAB SL PRN ×2 (11:15)
[2024-09-02] MEDS: POTASSIUM EFFERVESENT TAB 25 MEQ PO ONE (12:12)
[2024-09-02] MEDS: FUROSEMIDE 40 MG/4 ML VIAL IV ONE (12:12)
[2024-09-02 12:18] LABS: INR 1.14 (0.9-1.15); Partial Thromboplastin Time 27.8 SEC (24.5-34.5); Prothrombin Time 11.9 sec (9.3-11.8)
[2024-09-02 12:30] LABS: Basophils # (auto) 0.1 10 ^3/uL (0-0.2); Basophils % (auto) 1.5 % (0.0-2.0); Eosinophils # (auto) 0.1 10 ^3/uL (0-0.8); Eosinophils % (auto) 3.6 % (0.0-7.0); Hematocrit 33.9 % (36.0-46.0); Lymphocytes # (auto) 1.8 10 ^3/uL (0.4-5.4); Lymphocytes % (auto) 46.9 % (10.0-50.0); Mean Corpuscular Hemoglobin 31.2 pg (28.0-32.0); Mean Corpuscular Hgb Conc. 32.4 g/dL (32.0-36.0); Mean Corpuscular Volume 96.3 fL (80.0-100.0); Monocytes # (auto) 0.3 10 ^3/uL (0-1.3); Monocytes % (auto) 8.1 % (0.0-12.0); Neutrophils # (auto) 1.5 10 ^3/uL (1.6-8.6); Neutrophils % (auto) 39.9 % (37.0-80.0); Nucleated Red Blood Cells % 0.4 %; Platelet Count (auto) 157 10^3/uL (140-450); Red Blood Cells 3.53 10^6/uL (4.0-5.20); Red Cell Distribution Width 16.8 % (11.8-14.3); White Blood Cell 3.8 10^3/uL (4.4-10.8)
--- NOTE | 2024-09-02 14:01 | DVH ---
Procedure: US BiLat Lower DVT Study Date and Requested Time: 09/02/2024 01:10 PM History: eval for dvt ble Comparison: US BILAT LOWER DVT on DOS: 08/01/23 Technique: Multiple high resolution stein-scale images with and without compression obtained of the bi lateral lower extremity veins, including the common femoral vein, deep femoral vein, proximal mid and distal superficial femoral vein, and popliteal vein. Additional limited images of the greater saphen ous vein also obtained. Augmentation performed as indicated. Color and spectral doppler flow images o btained as indicated. Findings: No visible intraluminal venous thrombus. No evidence of incompressibility or abnormal color or spectr al Doppler flow visualized in the bilateral lower extremity veins including, the common femoral vein, deep femoral vein, proximal mid and distal superficial femoral vein, and popliteal vein. Greater sap henous vein grossly unremarkable. Impression: No sonographic evidence of bilateral lower extremity deep venous thrombosis.
[2024-09-02] MEDS: HEPARIN DRIP/D5W 100UNITS/ML 250 ML IV SCH ×2 (15:17→22:00)
--- NOTE | 2024-09-02 15:22 | DVHINCON2 ---
Date of service: Sep 02, [address] mark arenas Reason for Consultation copd History of Present Illness pt is a 69 yo AAF, h/o RA, copd, on nocturnal 02 at home. Pt reports a h/o PE, previously on eliquis, more recently changed to xarelto. Pt presented with symmetric swelling of lower extr and shortness of breath. CXR: right opacity at the base ?pneumonia Allergies: Coded Allergies: NO KNOWN ALLERGIES (Unverified , 10/10/20) Home Meds Active Scripts Respiratory Therapy Supplies (Full Kit Nebulizer Set) Set Mis, BOX XX Q4HP PRN, #1 Prov:PAULY KENNEDY INDUST[employer] DES[employer] INTERN 09/05/24 Albuterol Sulfate (Albuterol Sulfate) 0.083 % Neb, 1 VIAL NEB Q4HPRN for 30 Days, #50 VIAL Prov:SALPAULY PRITCHARD [employer] DES[employer] INTERN 09/05/24 Furosemide (Lasix) 20 Mg Tb, 1 TAB PO DAILY, #90 TAB 1 Refill Prov:PAULY KENNEDY INDUST[employer] DESIGN INTERN 09/05/24 Sacubitril-Valsartan (Entresto 24-26 mg) 1 Tab Tab, 1 TAB PO BID for 30 Days, #60 TAB 3 Refills Prov:PAULY KENNEDY INDUST[employer] DESIGN INTERN 09/05/24 Empagliflozin (Jardiance) 10 Mg Tab, 10 MG PO DAILY for 30 Days, #30 TAB 3 Refills Prov:PAULY KENNEDY INDUSTRI[employer] DESIGN INTERN 09/05/24 Carvedilol (COREG) 3.125 Mg Tab, 3.125 MG PO Q12HR for 30 Days, #60 TAB 3 Refills Prov:PAULY KENNEDY INDUST[employer] DESIGN INTERN 09/05/24 Rivaroxaban (Xarelto Tablet) 20 Mg Tb, 20 MG PO DAILY for 30 Days, #30 TAB 2 Refills Prov:KRIS JO MD 08/05/23 Reported Medications Gabapentin (Gabapentin) 300 Mg Cap, 300 MG PO TID, MG 09/02/24 Oxycodone W/ Acetaminophen (Percocet 5/325MG) 1 Tab Tb, 2 TAB PO TIDPRN PRN for PAIN SCALE 7 THRU 10, #120 TAB 08/02/23 Magnesium Oxide (Mag-Ox) 400 Mg Tb, 1 TAB PO DAILY PRN 08/01/23 Hydroxychloroquine Sulfate (Hydroxychloroquine Sulfat) 200 Mg Tab, 1 TAB PO DAILY 08/01/23 Leflunomide (Leflunomide) 10 Mg Tab, 1 TAB PO DAILY 08/01/23 Zolpidem Tartrate (Zolpidem Tartrate) 5 Mg Tab, TAB PO HS PRN for FOR INSOMNIA 10/10/20 Atorvastatin Calcium (Lipitor) 20 Mg Tab, 1 TAB PO QPM for HYPERLIPIDEMIA 10/10/20 Trazodone Hcl (Trazodone Hcl) 50 Mg Tab, 50 MG PO DAILY for DEPRESSION 10/10/20 Amitriptyline Hcl (Amitriptyline Hcl) 50 Mg Tab, 1 TAB PO QPM for DEPRESSION 08/27/11 Discontinued Reported Medications Clonidine HCl (Clonidine Hydrochloride) 0.1 Mg Tab, 0.1 MG PO DAILY for HYPERTENSION 10/09/20 Benazepril Hcl (Benazepril Hcl) 40 Mg Tab, 1 TAB PO QAM for HYPERTENSION 08/27/11 Discontinued Scripts Prednisone (Prednisone) 20 Mg Tab, 20 MG PO QAM for 5 Days, #10 MG Prov:KRIS JO MD 08/05/23 Doxycycline Monohydrate (Doxycycline Monohydrate) 100 Mg Tab, 100 MG PO BID for 7 Days, #14 TAB Prov:KRIS JO MD 08/05/23 Current Medications Current Medications Medications (Trade) Dose Ordered Sig/Rakan Route PRN Reason Start Time Stop Time Status Last Admin Atorvastatin Calcium (Lipitor) 20 mg QPM PO 09/02/24 18:00 Clonidine HCl (Catapres Tablet) 0.1 mg DAILY PO 09/03/24 10:00 Hydroxychloroquine Sulfate (Plaquenil Tablet) 200 mg DAILY PO 09/03/24 10:00 Oxycodone/ Acetaminophen (Percocet 5/ 325MG Tablet) 2 tab TIDPRN PRN PO PAIN SCALE 7 THRU 10 09/02/24 11:15 Rivaroxaban (Xarelto Tablet) 20 mg DAILY PO 09/03/24 10:00 Future Hold Trazodone HCl (Desyrel) 50 mg HS PO 09/02/24 22:00 Zolpidem Tartrate (Ambien) 5 mg HS PRN PO FOR INSOMNIA 09/02/24 11:15 Amitriptyline HCl (Elavil Tablet) 50 mg QPM PO 09/02/24 18:00 Benazepril HCl (Lotensin Tablet) 40 mg QAM PO 09/03/24 07:00 Patient Own Medication 1 tab DAILY PO 09/03/24 10:00 Prednisone 20 mg QAM PO 09/03/24 07:00 Furosemide (Lasix Injection) 40 mg BIDD IV 09/02/24 18:00 Albuterol (Ventolin Medneb) 2.5 mg Q6HPRN PRN NEB SHORTNESS OF BREATH 09/02/24 11:15 Ipratropium [place] (Atrovent Medneb) 0.5 mg Q6HPRN PRN NEB SHORTNESS OF BREATH 09/02/24 11:15 Aspirin 81 mg DAILY PO 09/03/24 10:00 Acetaminophen (Tylenol Tablet) 325 mg Q4HP PRN PO FOR HEADACHE 09/02/24 11:15 Docusate Sodium (Colace Capsule) 100 mg DAILY PO 09/03/24 10:00 Nitroglycerin (Ntrostat Sublingual) 0.4 mg Q5MINP PRN SL FOR CHEST PAIN 09/02/24 11:15 09/02/24 11:54 DC Ondansetron HCl (Zofran) 4 mg Q4HP PRN IV NAUSEA / VOMITING 09/02/24 11:15 Nitroglycerin (Ntrostat Sublingual) 0.4 mg Q5MINP PRN SL FOR CHEST PAIN 09/02/24 11:15 Heparin Sodium/ Dextrose 250 ml @ 10 mls/hr Q24H IV 09/02/24 15:00 Review of Systems Constitutional: no fever, chill, weight loss HEENT: no eye pain, no hearing loss, no oral lesion, no scleral icterus Heart: no chest pain, no chest pressure Lung: shortness of breath : no pain with urination, normal appearing urine Musculoskeletal: no joint pain, no muscle pain Neurological: no seizure, no loss of sensation, no weakness in extremities Pysch: no depression, no anxiety Derm: no rash, no jaundice Vital Signs Vital Signs Date Time Temp Pulse Resp B/P (MAP) Pulse Ox O2 Delivery O2 Flow Rate FiO2 09/02/24 13:23 97.8 95 16 137/96 100 2.0 28 97.8 09/02/24 12:55 Nasal Cannula* Labs/Diagnostic Data Labs Test 09/02/24 14:09 09/02/24 11:30 09/02/24 04:28 09/02/24 04:01 Range/Units D-Dimer, Quantitative 1.53 H 0.0-0.49 mg/L FEU Troponin I High Sensitivity 72 *H </=34 ng/L White Blood Count 3.8 L 4.4-10.8 10^3/uL Red Blood Count 3.53 L 4.0-5.20 10^6/uL Hemoglobin 11.0 L 12.2-16.2 g/dL Hematocrit 33.9 L 36.0-46.0 % Mean Corpuscular Volume 96.3 80.0-100.0 fL Mean Corpuscular Hemoglobin 31.2 28.0-32.0 pg Mean Corpuscular Hemoglobin Concent 32.4 32.0-36.0 g/dL Red Cell Distribution Width 16.8 H 11.8-14.3 % Platelet Count 157 140-450 10^3/uL Mean Platelet Volume 9.4 6.9-10.8 fL Neutrophils (%) (Auto) 39.9 37.0-80.0 % Lymphocytes (%) (Auto) 46.9 10.0-50.0 % Monocytes (%) (Auto) 8.1 0.0-12.0 % Eosinophils (%) (Auto) 3.6 0.0-7.0 % Basophils (%) (Auto) 1.5 0.0-2.0 % Neutrophils # (Auto) 1.5 L 1.6-8.6 10 ^3/uL Lymphocytes # (Auto) 1.8 0.4-5.4 10 ^3/uL Monocytes # (Auto) 0.3 0-1.3 10 ^3/uL Eosinophils # (Auto) 0.1 0-0.8 10 ^3/uL Basophils # (Auto) 0.1 0-0.2 10 ^3/uL Nucleated Red Blood Cells 0.4 % Prothrombin Time 11.9 H 9.3-11.8 sec Prothrombin Time INR 1.14 0.9-1.15 Activated Partial Thromboplast Time 27.8 24.5-34.5 SEC Sodium Level 140 136-145 mmol/L Potassium Level 3.4 L 3.5-5.1 mmol/L Chloride Level 108 H 98-107 mmol/L Carbon Dioxide Level 25 20-31 mmol/L Anion Gap 7 5-15 Blood Urea Nitrogen 11 9-23 mg/dL Creatinine 1.12 H 0.550-1.02 mg/dL Glomerular Filtration Rate Calc 54 >90 mL/min BUN/Creatinine Ratio 9.8 L 10.0-20.0 Serum Glucose 118 H 74-106 mg/dL Calcium Level 9.0 8.7-10.4 mg/dL Phosphorus Level 3.6 2.4-5.1 mg/dL Magnesium Level 1.7 1.6-2.6 mg/dL Total Bilirubin 0.5 0.2-1.0 mg/dL Aspartate Amino Transferase (AST) 53 H 13-40 U/L Alanine Aminotransferase (ALT) 47 H 7-40 U/L Alkaline Phosphatase 101 46-116 U/L B-Type Natriuretic Peptide 993.85 0-100 pg/mL Total Protein 6.2 5.7-8.2 g/dL Albumin 3.7 3.2-4.8 g/dL Urine Color Yellow Yellow Urine Clarity Clear Clear Urine pH 6.5 5.0-9.0 Urine Specific [place] 1.036 H 1.001-1.035 Urine Protein 3+ H Negative Urine Ketones Trace Negative Urine Blood 1+ H Negative /uL Urine Nitrite Negative Negative Urine Bilirubin Negative Negative Urine Urobilinogen 3 H Negative mg/dL Urine Leukocyte Esterase Negative Negative /uL Urine RBC 49 0 - 4 /hpf Urine Microscopic WBC 21 H 0-5 /HPF Urine Squamous Epithelial Cells Mod <5 /hpf Urine Transitional Epithelial Cells Few <2 /hpf Urine Renal Epithelial Cells Few None Seen /hpf Urine Bacteria Few H None Seen /hpf Urine Hyaline Casts Many 0 - 2 /lpf Urine Mucus Few None Seen Urine Glucose Normal Normal mg/dL Assessment copd pneumonia h/o PE new onset CHF plan/rec abx steroids diurese cardiac work up venous doppler neg've for dvt CTA pending continue anti-coagulation Plan discussed with: Patient JAMARCUS CAMPA MD Sep 02, 2024 15:22
[2024-09-02] MEDS: OXYCODONE W/ ACETAMINOPHEN 5/325MG TABLET PO PRN (15:38)
[2024-09-02] MEDS: AMITRIPTYLINE HCL 25 MG TAB PO SCH (18:02)
[2024-09-02] MEDS: ATORVASTATIN 20 MG TAB PO SCH (18:02)
[2024-09-02] MEDS: FUROSEMIDE 40 MG/4 ML VIAL IV SCH (18:02)
[2024-09-02 21:18] LABS: INR 1.12 (0.9-1.15); Partial Thromboplastin Time 44.4 SEC (24.5-34.5); Prothrombin Time 11.7 sec (9.3-11.8)
[2024-09-02] MEDS: traZODone HCL 50 MG TAB PO SCH (21:36)
[2024-09-02] MEDS: ZOLPIDEM TARTRATE 5 MG TAB PO PRN (23:01)
[2024-09-03] VITALS (11 sets, daily range): BP systolic 108–140; BP diastolic 75–93; PULSE 69–102; RESP 14–18; TEMP 97.4–98; O2SAT 94–100
[2024-09-03 03:27] LABS: Alkaline Phosphatase 95 U/L (46-116); Anion Gap 6 (5-15); BUN/Creatinine Ratio 9.3 (10.0-20.0); Blood Urea Nitrogen 10 mg/dL (9-23); Calcium 9.3 mg/dL (8.7-10.4); Carbon Dioxide 31 mmol/L (20-31); Chloride 103 mmol/L (98-107); Sodium 140 mmol/L (136-145)
[2024-09-03 03:28] LABS: Alanine Aminotransferase 49 U/L (7-40); Albumin 3.7 g/dL (3.2-4.8); Aspartate Aminotransferase 42 U/L (13-40); Bilirubin, Total 0.8 mg/dL (0.2-1.0); Glucose 130 mg/dL (74-106); Potassium 3.3 mmol/L (3.5-5.1)
[2024-09-03 03:32] LABS: INR 1.12 (0.9-1.15); Prothrombin Time 11.7 sec (9.3-11.8)
[2024-09-03 03:37] LABS: Basophils # (auto) 0 10 ^3/uL (0-0.2); Eosinophils # (auto) 0.2 10 ^3/uL (0-0.8); Eosinophils % (auto) 4.3 % (0.0-7.0); Hematocrit 31.6 % (36.0-46.0); Hemoglobin 10.4 g/dL (12.2-16.2); Lymphocytes # (auto) 2.1 10 ^3/uL (0.4-5.4); Lymphocytes % (auto) 49.4 % (10.0-50.0); Mean Corpuscular Hemoglobin 31.6 pg (28.0-32.0); Mean Corpuscular Volume 95.7 fL (80.0-100.0); Monocytes # (auto) 0.3 10 ^3/uL (0-1.3); Monocytes % (auto) 7.6 % (0.0-12.0); Neutrophils # (auto) 1.6 10 ^3/uL (1.6-8.6); Neutrophils % (auto) 37.7 % (37.0-80.0); Nucleated Red Blood Cells % 0.3 %; Platelet Count (auto) 146 10^3/uL (140-450); Red Cell Distribution Width 16.4 % (11.8-14.3); White Blood Cell 4.2 10^3/uL (4.4-10.8)
[2024-09-03 03:44] LABS: Partial Thromboplastin Time 84.8 SEC (24.5-34.5)
[2024-09-03] MEDS: HEPARIN DRIP/D5W 100UNITS/ML 250 ML IV SCH (04:00)
[2024-09-03] MEDS: predniSONE 20 MG TAB PO SCH (06:07)
[2024-09-03] MEDS: BENAZEPRIL HCL 10 MG TAB PO SCH (06:07)
[2024-09-03] MEDS ORDERED: POTASSIUM EFFERVESENT TAB 25 MEQ PO ONE (06:45)
[2024-09-03] MEDS: POTASSIUM CHL 20 Meq TABLET PO ONE ×2 (06:47→14:49)
[2024-09-03] MEDS: ALBUTEROL SULF 2.5 MG/0.5ML(0.5%) NEB SOLN NEB PRN (07:57)
[2024-09-03] MEDS: IPRATROPIUM BROM 0.5 MG/2.5ML INH SOL NEB PRN (07:57)
[2024-09-03] MEDS: ASPirin 81 mg TAB PO SCH (08:38)
[2024-09-03] MEDS: DOCUSATE SOD 100 MG CAP PO SCH (08:38)
[2024-09-03] MEDS: cloNIDine HCL 0.1 MG TAB PO SCH (08:39)
[2024-09-03] MEDS: hydrOXYchloroQUINE SULFATE 200 MG TAB PO SCH (08:39)
--- NOTE | 2024-09-03 08:53 | DVHSR ---
APPROVED REPORT EXAM: Two-dimensional and M-mode echocardiogram with Doppler and color Doppler. Blood Pressure: 141/91 mmHg INDICATION Chest Pain RISK FACTORS Height: 5'6", Weight: 185 DIMENSIONS LVDd5.2 (3.8-5.7cm)LA (2D)3.8 (1.9-4.0cm)Aortic Root3.0 (2.0-3.7cm) LVDs4.6 (2.5-4.0cm)LA (MM) (1.9-4.0cm)Aortic Cusp Exc1.7 (1.5-2.0cm) EF (%) 23.0 (55-70%)Rt. Atrium3.7 (1.9-4.0cm)Asc. Aorta cm IVSd1.1 (0.7-1.1cm)RV (D) (1.8-2.4cm) PWd1.2 (0.7-1.1cm) Mitral Valve MitralMitral Stenosis E wave1.47m/sMV Mean GR.mmHg A wave1.14m/sMV Peak GR.mmHg E/A ratio1.32D MVAcm2 DECEL [id number] 1/2 Tim[place] Aortic Valve Aortic ValveAortic Stenosis V10.94m/Sanam Mean GR.4mmHg V21.40m/Sanam Peak GR.8mmHg LVOT Diameter1.9 (1.8-2.4cm)Doppler AVA1.90cm2 AI P 1/2 Wkob421.30ms Pulmonic Valve V20.59m/s Tricuspid Valve TR Velocity3.43m/s [id number] Conclusion Left ventricle: Left ventricle was mildly dilated. Concentric left ventricular hypertrophy was seen . LVEF was around 25%. Diffuse hypokinesis of left ventricle was seen. LVEDP was assessed to be el evated. Right ventricle was dilated with reduced systolic function. Both atria were mildly dilated. Aortic valve: Aortic valve was trileaflet. There was no aortic stenosis. There was moderate aortic/ mitral/tricuspid regurgitation. Pulmonary valve reveals mild insufficiency. Right ventricular systolic pressure was assessed that 60 mm Hg. There was no pericardial effusion.
[2024-09-03] MEDS: LEFLUNOMIDE 10 MG TABLET PO SCH (10:00)
[2024-09-03] MEDS ORDERED: IOHEXOL 350 MG/ML 100ML IJ ONE (10:09)
--- NOTE | 2024-09-03 10:21 | DVHINCON2 ---
Date of service: Sep 03, 2024 History of Present Illness HPI Patient is a 69-year-old female who presented with shortness of breath and chest tightness for few days. She did have some lower extremity edema and complained of dyspnea on exertion also. She is known to have advanced COPD and is on home oxygen. Cardiology is involved for cardiac aspects of care. It is of note that the patient comes to our office as outpatient. She has been noncompliant with her medication and followups. The last visit in the office was in October 2023 and she repeatedly missed her follow-up visits since then. Home Meds Active Scripts Rivaroxaban (Xarelto Tablet) 20 Mg Tb, 20 MG PO DAILY for 30 Days, #30 TAB 2 Refills Prov:KRIS JO MD 08/05/23 Prednisone (Prednisone) 20 Mg Tab, 20 MG PO QAM for 5 Days, #10 MG Prov:KRIS JO MD 08/05/23 Doxycycline Monohydrate (Doxycycline Monohydrate) 100 Mg Tab, 100 MG PO BID for 7 Days, #14 TAB Prov:KRIS JO MD 08/05/23 Reported Medications Gabapentin (Gabapentin) 300 Mg Cap, 300 MG PO TID, MG 09/02/24 Oxycodone W/ Acetaminophen (Percocet 5/325MG) 1 Tab Tb, 2 TAB PO TIDPRN PRN for PAIN SCALE 7 THRU 10, #120 TAB 08/02/23 Magnesium Oxide (Mag-Ox) 400 Mg Tb, 1 TAB PO DAILY PRN 08/01/23 Hydroxychloroquine Sulfate (Hydroxychloroquine Sulfat) 200 Mg Tab, 1 TAB PO DAILY 08/01/23 Leflunomide (Leflunomide) 10 Mg Tab, 1 TAB PO DAILY 08/01/23 Zolpidem Tartrate (Zolpidem Tartrate) 5 Mg Tab, TAB PO HS PRN for FOR INSOMNIA 10/10/20 Atorvastatin Calcium (Lipitor) 20 Mg Tab, 1 TAB PO QPM for HYPERLIPIDEMIA 10/10/20 Trazodone Hcl (Trazodone Hcl) 50 Mg Tab, 50 MG PO DAILY for DEPRESSION 10/10/20 Clonidine HCl (Clonidine Hydrochloride) 0.1 Mg Tab, 0.1 MG PO DAILY for HYPERTEN [place] 10/09/20 Benazepril Hcl (Benazepril Hcl) 40 Mg Tab, 1 TAB PO QAM for HYPERTENSION 08/27/11 Amitriptyline Hcl (Amitriptyline Hcl) 50 Mg Tab, 1 TAB PO QPM for DEPRESSION 08/27/11 Past Medical History Others Patient is a 69-year-old female who presented with shortness of breath and chest tightness for few days. She did have some lower extremity edema and complained of dyspnea on exertion also. She is known to have advanced COPD and is on home oxygen. Cardiology is involved for cardiac aspects of care. It is of note that the patient comes to our office as outpatient. She has been noncompliant with her medication and followups. The last visit in the office was in October 2023 and she repeatedly missed her follow-up visits since then. She does have baseline history of increased troponin, for which had left heart catheterization in July 2023 (nonrevealing of coronary artery disease). Smoker: No Hx (Negative) Alocohol: None Drugs: None Lives with: With family Review of Systems Pulmonary/Respiratory: Dyspnea Cardiovascular: Chest Pain, Edema All Other Systems Fourteen point review of system was performed. Relevant findings as per above and as per HPI. Otherwise negative. H&P Exam Vital Signs Vital Signs Date Time Temp Pulse Resp B/P (MAP) Pulse Ox O2 Delivery O2 Flow Rate FiO2 09/03/24 08:50 97.9 96 18 135/93 (107) 94 97.9 09/03/24 07:57 Nasal Cannula* 3 32 General Appeara: Well developed, Well nourished Head Exam: Normal inspection Neck Exam: Normal inspection Eye Exam: bilateral eye PERRL Pulmonary/Respiratory: Rales, Rhonci Cardiovascular/Chest: Normal inspection, Edema, Regular rate, Systolic murmur Peripheral Pulses: 2+ carotid (R), 2+ carotid (L), 2+ femoral (R), 2+ femoral (L), 2+ dorsalis pedis (R), 2+ dorsalis pedis (L), 2+ Radial (R), 2+ Radial (L) Abdominal Exam: Normal bowel sounds, Soft Neuro/Mental St: Alert, Oriented Appearance: Appropriate appearance Eye contact/ Speech: Cooperative Labs/Xrays Labs Test 09/03/24 02:53 09/02/24 14:09 09/02/24 04:28 09/02/24 04:01 Range/Units White Blood Count 4.2 L 4.4-10.8 10^3/uL Red Blood Count 3.30 L 4.0-5.20 10^6/uL Hemoglobin 10.4 L 12.2-16.2 g/dL Hematocrit 31.6 L 36.0-46.0 % Mean Corpuscular Volume 95.7 80.0-100.0 fL Mean Corpuscular Hemoglobin 31.6 28.0-32.0 pg Mean Corpuscular Hemoglobin Concent 33.0 32.0-36.0 g/dL Red Cell Distribution Width 16.4 H 11.8-14.3 % Platelet Count 146 140-450 10^3/uL Mean Platelet Volume 9.2 6.9-10.8 fL Neutrophils (%) (Auto) 37.7 37.0-80.0 % Lymphocytes (%) (Auto) 49.4 10.0-50.0 % Monocytes (%) (Auto) 7.6 0.0-12.0 % Eosinophils (%) (Auto) 4.3 0.0-7.0 % Basophils (%) (Auto) 1.0 0.0-2.0 % Neutrophils # (Auto) 1.6 1.6-8.6 10 ^3/uL Lymphocytes # (Auto) 2.1 0.4-5.4 10 ^3/uL Monocytes # (Auto) 0.3 0-1.3 10 ^3/uL Eosinophils # (Auto) 0.2 0-0.8 10 ^3/uL Basophils # (Auto) 0 0-0.2 10 ^3/uL Nucleated Red Blood Cells 0.3 % Prothrombin Time 11.7 9.3-11.8 sec Prothrombin Time INR 1.12 0.9-1.15 Activated Partial Thromboplast Time 84.8 *H 24.5-34.5 SEC Sodium Level 140 136-145 mmol/L Potassium Level 3.3 L 3.5-5.1 mmol/L Chloride Level 103 98-107 mmol/L Carbon Dioxide Level 31 20-31 mmol/L Anion Gap 6 5-15 Blood Urea Nitrogen 10 9-23 mg/dL Creatinine 1.08 H 0.550-1.02 mg/dL Glomerular Filtration Rate Calc 56 >90 mL/min BUN/Creatinine Ratio 9.3 L 10.0-20.0 Serum Glucose 130 H 74-106 mg/dL Calcium Level 9.3 8.7-10.4 mg/dL Total Bilirubin 0.8 0.2-1.0 mg/dL Aspartate Amino Transferase (AST) 42 H 13-40 U/L Alanine Aminotransferase (ALT) 49 H 7-40 U/L Alkaline Phosphatase 95 46-116 U/L Total Protein 6.0 5.7-8.2 g/dL Albumin 3.7 3.2-4.8 g/dL D-Dimer, Quantitative 1.53 H 0.0-0.49 mg/L FEU Troponin I High Sensitivity 72 *H </=34 ng/L Phosphorus Level 3.6 2.4-5.1 mg/dL Magnesium Level 1.7 1.6-2.6 mg/dL B-Type Natriuretic Peptide 993.85 0-100 pg/mL Urine Color Yellow Yellow Urine Clarity Clear Clear Urine pH 6.5 5.0-9.0 Urine Specific [place] 1.036 H 1.001-1.035 Urine Protein 3+ H Negative Urine Ketones Trace Negative Urine Blood 1+ H Negative /uL Urine Nitrite Negative Negative Urine Bilirubin Negative Negative Urine Urobilinogen 3 H Negative mg/dL Urine Leukocyte Esterase Negative Negative /uL Urine RBC 49 0 - 4 /hpf Urine Microscopic WBC 21 H 0-5 /HPF Urine Squamous Epithelial Cells Mod <5 /hpf Urine Transitional Epithelial Cells Few <2 /hpf Urine Renal Epithelial Cells Few None Seen /hpf Urine Bacteria Few H None Seen /hpf Urine Hyaline Casts Many 0 - 2 /lpf Urine Mucus Few None Seen Urine Glucose Normal Normal mg/dL Assessment/Plan Plan Patient is a 69-year-old female who presented with shortness of breath and chest tightness for few days. She did have some lower extremity edema and complained of dyspnea on exertion also. She is known to have advanced COPD and is on home oxygen. Cardiology is involved for cardiac aspects of care. It is of note that the patient comes to our office as outpatient. She has been noncompliant with her medication and followups. The last visit in the office was in October 2023 and she repeatedly missed her follow-up visits since then. She does have baseline history of increased troponin, for which had left heart catheterization in July 2023 (nonrevealing of coronary artery disease). No JVD. [place] and red mucosa. Scattered rhonchi in the lungs. Cardiac: Regular, no thrill. Systolic murmur 3 out of 6 in the apex. Abdomen is soft. No gross mass. No hepatomegaly. Extremities: Edema of lower extremities is seen, left more than right. Dorsalis pedis is 1+ bilateral Past medical history includes advanced COPD/Emphysema on home oxygen, Rheumatoid Arthritis (goes to Rheumatology/Dr. Hong), Hypertension, CKD, anxiety disorder, insomnia, obesity, peripheral artery disease, hyperlipidemia, prediabetes, questionable Paroxysmal A-fib (mentioned in old notes, no EKG/telemetry rhythm were available to review) and old history of DVT (for which she has been kept on Xarelto). She did have old history of cholecystectomy. She does use marijuana occasionally. It is of note that the nuclear stress test of May 2020 was abnormal (performed in the office). Does have history of noncompliance to medication and followups. Outside echocardiogram of August 2022 had reported preserved left ventricular systolic function, mild valvular disease and right ventricular systolic pressure 31 mmHg Echocardiogram of August 02, 2023 had reported, technically difficult study, ej ection fraction of 50%, sigmoid septum, mild left atrial enlargement, [id number] aortic insufficiency, mild MR. As there was no good tricuspid regurgitation jet, right ventricular systolic pressure could not be estimated. Cardiac catheterization of August 03, 2023 had reported normal coronaries Hemoglobin: 10.7 - 11.0 - 10.4 D-dimer: 1.53 Creatinine: 1.12 - 1.08 Potassium: 3.4 - 3.3 AST/ALT: 53/47 - 42/49 BNP: 993.85 Troponin (high sensitive): 91 - 77 - 72 Chest x-ray reported: Impression: 1. Right lower zone haziness, likely infiltrates/artifacts were due to overlying soft tissues. 2. Cardiomegaly. Venous Doppler of lower extremities reported: Impression: No sonographic evidence of bilateral lower extremity deep venous thrombosis. EKG revealed paced ventricular rhythm Telemetry reveals sinus rhythm with paced ventricle Echocardiogram reported: Left ventricle: Left ventricle was mildly dilated. Concentric left ventricular hypertrophy was seen. LVEF was around 25%. Diffuse hypokinesis of left ventricle was seen. LVEDP was assessed to be elevated. Right ventricle was dilated with reduced systolic function. Both atria were mildly dilated. Aortic valve: Aortic valve was trileaflet. There was no aortic stenosis. There was moderate aortic/mitral/tricuspid regurgitation. Pulmonary valve reveals mild insufficiency. Right ventricular systolic pressure was assessed that 60 mm Hg. There was no pericardial effusion. Patient is a 69-year-old female who presented with dyspnea on exertion/peripheral edema and questionable chest tightness. Does have minimal increase/flat troponin. Presentation is not considered ACS. It is of note that the patient had a normal left heart catheterization 1 year ago and also has baseline increase of troponin. Patient is found to have heart failure in echocardiogram. Which could have contributed to the clinical picture. Left ventricular systolic function has decreased and this finding is new for the patient. Recognizing old left heart catheterization results, assessment is nonischemic cardiomyopathy. Does have some valvular regurgitation. Does have history of noncompliance which could have contributed to the clinical picture. Has not been on guideline directed medical therapy. Does have old history of DVT and has been kept on Xarelto. Is found to have abnormal D-dimer and it is prudent to rule out acute pulmonary emboli (recognizing history of noncompliance). Shortness of breath Acute on chronic heart failure, systolic Systolic heart failure, new diagnosis COPD exacerbation Pulmonary Hypertension Pneumonia, community-acquired Troponin, increased, demand ischemia Noncompliance, history of COPD, advanced on home oxygen Hyperlipidemia History of DVT Questionable paroxysmal AFib VHD: Moderate MR/TR/AI Cardiac suggestion for management: Manage on telemetry IV diuresis Follow-up electrolytes and kidney function test and correct abnormalities. Keep potassium above 4 and magnesium above [address] angio of the lungs is advised Guideline directed medical therapy for systolic heart failure at this point Stop Benazepril Start Entresto Stop Clonidine Start carvedilol Pulmonary follow-up is advised Thank you for consultation Further evaluation and management depends on the above and clinical course A total of 75 minutes was spent reviewing the patient record, examining the patient, making a diagnostic and therapeutic plan, discussing this plan with medical personnel, following up on diagnostic studies and following the patient for clinical stability excluding any and all procedures. At least 50% of this time was spent in direct, [id number] contact. Thank you for allowing me to participate in this patient's care. Further recommendations will depend on patient's clinical course. Please do not hesitate to contact me if you have any questions or concerns. This medical document was created using electronic medical record system with [employer] dictation system. Although this document has been carefully reviewed, there may still be some phonetic and typographical errors. These areas are purely typographical due to the imperfection of the software programs, and do not reflect any compromise in the patient's medical care. Plan discussed with: Patient, Other (nurse) DIPAK READ MD Sep 03, 2024 10:21
--- NOTE | 2024-09-03 10:36 | DVH ---
Procedure: CT CT ANGIO CHEST CONTRAST Reason for study/Clinical History: Shortness of breath Comparison Study: None available at time of dictation. Exam Date: 09/03/2024 10:14 AM Radiation Dose Information: CT Dose: CTDI volume is 25 mGy. Dose-length product is 250 mGy*cm TECHNIQUE: After the uneventful administration of intravenous contrast intravenously, CT imaging was performed through the chest. Coronal and sagittal reformations were performed by the technologist. FINDINGS: Lower Neck: Visualized portions of the thyroid gland are unremarkable. Aorta and Vasculature: Normal caliber of thoracic aorta. Lymph Nodes: No enlarged intrathoracic lymph nodes. Mediastinum: Heart size is normal. There is no pericardial effusion. The esophagus is unremarkable. Lungs: Trace right pleural effusion. Bronchiectasis. Musculoskeletal: No acute osseous abnormality. Upper abdomen: Limited portions of the upper abdomen are unremarkable. IMPRESSION: Trace right pleural effusion. Bronchiectasis. Chronic interstitial lung disease is noted in the upper lobes. No pulmonary embolism. All CT scans at this medical facility are performed using dose modulation techniques as appropriate t o a performed exam including the following: Automated exposure control was utilized; adjustment of th e MA and/or KV according to patient size; and use of iterative reconstruction technique.
[2024-09-03] MEDS: CARVEDILOL 3.125 MG TAB PO SCH (10:41)
[2024-09-03] MEDS: SACUBITRIL-VALSARTAN 24mg/26mg TAB PO SCH (10:42)
--- NOTE | 2024-09-03 12:54 | DVHPN2 ---
Subjective Patient continues to report having some dyspnea with ambulation as well as swelling to her lower extremities. Reviewed: Care Plan, H&P, Labs, Medications Changes from previous H/P or p: No Changes General: Per HPI Eyes: No Pain, No Vision change, No Conjunctivae inflammation, No Eyelid inflammation, No Other, No Redness ENT: No Ear pain, No Ear discharge, No Nose pain, No Nose discharge, No Nose congestion, No Mouth pain, No Mouth swelling, No Throat pain, No Throat swelling, No Other Cardiovascular: No Chest Pain, No Palpitations, No Orthopnea, No Paroxysmal Noc. Dyspnea, No Edema, No Lt Headedness, No Other Respiratory: No Cough, No Dry; Shortness of breath, SOB with excertion; No Wheezing, No Hemoptysis, No Pleuritic Pain, No Sputum, No Other Gastrointestinal: No Nausea, No Vomiting, No Abdominal Pain, No Diarrhea, No Constipation, No Melena, No Hematochezia, No Other Genitourinary: No Dysuria, No Frequency, No Incontinence, No Hematuria, No Retention, No Other Musculoskeletal: No other, No neck pain, No shoulder pain, No arm pain, No back pain, No hand pain, No leg pain, No foot pain Skin: No Rash, No Lesions, No Jaundice, No Bruising, No Other Objective Vitals Vital Signs Date Time Temp Pulse Resp B/P (MAP) Pulse Ox O2 Delivery O2 Flow Rate FiO2 09/03/24 12:40 97.4 87 18 108/75 (86) 100 97.4 09/03/24 07:57 Nasal Cannula* 3 32 Intake/Output Intake and Output 09/03/24 07:00 Intake Total 2050 ml Balance 2050 ml Intake Oral 2050 ml # Voids 11 General Appearance: Alert, Oriented X3, Cooperative, No acute distress HEENT: Atraumatic, PERRLA Lungs: Clear to auscultation, Normal air movement Cardiovascular: Normal S1, Normal S2 Abdomen: Normal bowel sounds Extremities: Normal pulses, Other (Plus one pitting edema to lower extremity) Skin: Dry, Intact Psych/Mental Status: Mental status NL, Mood NL Medications Current Medications Medications Dose Ordered Sig/Rakan Route Start Time Stop Time Status Last Admin Dose Admin Atorvastatin Calcium 20 mg QPM PO 09/02/24 18:00 09/02/24 18:02 20 MG Hydroxychloroquine Sulfate 200 mg DAILY PO 09/03/24 10:00 09/03/24 08:39 200 MG Oxycodone/ Acetaminophen 2 tab TIDPRN PRN PO 09/02/24 11:15 09/03/24 08:40 2 TAB Rivaroxaban 20 mg DAILY PO 09/03/24 10:00 Trazodone HCl 50 mg HS PO 09/02/24 22:00 09/02/24 21:36 50 MG Zolpidem Tartrate 5 mg HS PRN PO 09/02/24 11:15 09/02/24 23:01 5 MG Amitriptyline HCl 50 mg QPM PO 09/02/24 18:00 09/02/24 18:02 50 MG Patient Own Medication 1 tab DAILY PO 09/03/24 10:00 Prednisone 20 mg QAM PO 09/03/24 07:00 09/03/24 06:07 20 MG Furosemide 40 mg BIDD IV 09/02/24 18:00 09/03/24 06:48 40 MG Albuterol 2.5 mg Q6HPRN PRN NEB 09/02/24 11:15 09/03/24 07:57 2.5 MG Ipratropium [place] 0.5 mg Q6HPRN PRN NEB 09/02/24 11:15 09/03/24 07:57 0.5 MG Aspirin 81 mg DAILY PO 09/03/24 10:00 09/03/24 08:38 81 MG Acetaminophen 325 mg Q4HP PRN PO 09/02/24 11:15 Docusate Sodium 100 mg DAILY PO 09/03/24 10:00 09/03/24 08:38 100 MG Ondansetron HCl 4 mg Q4HP PRN IV 09/02/24 11:15 Nitroglycerin 0.4 mg Q5MINP PRN SL 09/02/24 11:15 Sacubitril/ Valsartan 1 tab BID PO 09/03/24 10:00 09/03/24 10:42 1 TAB Carvedilol 3.125 mg Q12HR PO 09/03/24 10:00 09/03/24 10:41 3.125 MG Laboratory Results Laboratory Tests 09/03/24 02:53 Chemistry Test 09/03/24 02:53 Albumin 3.7 g/dL (3.2-4.8) Calcium Level 9.3 mg/dL (8.7-10.4) Total Protein 6.0 g/dL (5.7-8.2) Coagulation Test 09/02/24 14:09 09/02/24 20:50 09/03/24 02:53 D-Dimer, Quantitative 1.53 mg/L FEU (0.0-0.49) H Prothrombin Time 11.7 sec (9.3-11.8) 11.7 sec (9.3-11.8) Prothrombin Time INR 1.12 (0.9-1.15) 1.12 (0.9-1.15) Activated Partial Thromboplast Time 44.4 SEC (24.5-34.5) H 84.8 SEC (24.5-34.5) *H LFT Test 09/03/24 02:53 Alanine Aminotransferase (ALT) 49 U/L (7-40) H Alkaline Phosphatase 95 U/L (46-116) Aspartate Amino Transferase (AST) 42 U/L (13-40) H Total Bilirubin 0.8 mg/dL (0.2-1.0) Urinalysis Test 09/02/24 04:01 Urine Color Yellow (Yellow) Urine Clarity Clear (Clear) Urine pH 6.5 (5.0-9.0) Urine Specific [place] 1.036 (1.001-1.035) Urine Protein 3+ (Negative) H Urine Ketones Trace (Negative) Urine Blood 1+ /uL (Negative) H Urine Nitrite Negative (Negative) Urine Bilirubin Negative (Negative) Urine Urobilinogen 3 mg/dL (Negative) H Urine Leukocyte Esterase Negative /uL (Negative) Urine RBC 49 /hpf (0 - 4) Urine Microscopic WBC 21 /HPF (0-5) H Urine Squamous Epithelial Cells Mod /hpf (<5) Urine Transitional Epithelial Cells Few /hpf (<2) Urine Renal Epithelial Cells Few /hpf (None Seen) Urine Bacteria Few /hpf (None Seen) H Urine Hyaline Casts Many /lpf (0 - 2) Urine Mucus Few (None Seen) Urine Glucose Normal mg/dL (Normal) Labs and/or images reviewed: Labs reviewed by me, Image(s) reviewed by me Assessment/Plan Assessment/Plan Impression: -acute hypoxic respiratory failure -acute decompensated systolic heart failure with ejection fraction 25% -obesity -history of pulmonary embolism, ruled out on this admission -COPD -DVT ruled out -hypokalemia -anemia of chronic disease Plan: -continue goal-directed medical therapy per Cardiology recommendations -continue anticoagulation with Xarelto -continue IV diuresis -bronchodilators as needed -O2 supplementation to keep saturation greater than 90% -repeat labs in a.m. -potassium replacement -re-evaluate for discharge tomorrow Total time spent with patient discussing and formulating plan of care: 35 minutes. This medical document was created using an electronic medical record system with [employer] dictation system. Although this document has been carefully reviewed, there may still be some phonetic and typographical errors. These areas are purely typographical due to imperfections of the software programs, and do not reflect any compromise in the patient's medical care. Plan discussed with: Patient, Other (RN) Date of Service: Sep 03, 2024 Billing Provider: PAULY KENNEDY NP Common Visit Codes: [id number] INP/OBS CARE(HIGH) PAULY KENNEDY NP Sep 03, 2024 12:54
--- NOTE | 2024-09-03 13:25 | ECG ---
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
[2024-09-03 13:55] LABS: Albumin 3.9 g/dL (3.2-4.8); Alkaline Phosphatase 98 U/L (46-116); Anion Gap 8 (5-15); Aspartate Aminotransferase 36 U/L (13-40); BUN/Creatinine Ratio 7.4 (10.0-20.0); Calcium 9.6 mg/dL (8.7-10.4); Carbon Dioxide 28 mmol/L (20-31); Chloride 100 mmol/L (98-107); Potassium 4.4 mmol/L (3.5-5.1)
[2024-09-03 13:57] LABS: Bilirubin, Total 0.9 mg/dL (0.2-1.0); Total Protein 6.6 g/dL (5.7-8.2)
[2024-09-03 14:00] LABS: Alanine Aminotransferase 51 U/L (7-40); Blood Urea Nitrogen 9 mg/dL (9-23); Glucose 210 mg/dL (74-106); Sodium 136 mmol/L (136-145)
[2024-09-03 14:08] LABS: INR 1.11 (0.9-1.15); Partial Thromboplastin Time 30.5 SEC (24.5-34.5); Prothrombin Time 11.6 sec (9.3-11.8)
--- NOTE | 2024-09-03 23:20 | DVHPN2 ---
Progress Note - Dictate Date Seen: Sep 03, 2024 Medical Necessity Reason Pt with a Central, PICC or Fol: No Subjective Patient seen and examined at bedside. Remains on supplemental oxygen Overnight events reviewed. vital signs Vital Sign Date Time Temp Pulse Resp B/P (MAP) Pulse Ox O2 Delivery O2 Flow Rate FiO2 09/03/24 21:58 98 120/76 09/03/24 21:00 98.0 18 100 98.0 09/03/24 08:00 Nasal Cannula* 3 32 Total Intake and Output 09/02/24 09/02/24 09/03/24 15:00 23:00 07:00 Intake Total 1300 ml 750 ml Balance 1300 ml 750 ml medications Current Medications Medications Dose Ordered Sig/Rakan Route Start Time Stop Time Status Last Admin Dose Admin Atorvastatin Calcium 20 mg QPM PO 09/02/24 18:00 09/03/24 18:13 20 MG Hydroxychloroquine Sulfate 200 mg DAILY PO 09/03/24 10:00 09/03/24 08:39 200 MG Oxycodone/ Acetaminophen 2 tab TIDPRN PRN PO 09/02/24 11:15 09/03/24 20:20 2 TAB Rivaroxaban 20 mg DAILY PO 09/03/24 10:00 Trazodone HCl 50 mg HS PO 09/02/24 22:00 09/03/24 21:57 50 MG Zolpidem Tartrate 5 mg HS PRN PO 09/02/24 11:15 09/02/24 23:01 5 MG Amitriptyline HCl 50 mg QPM PO 09/02/24 18:00 09/03/24 18:13 50 MG Patient Own Medication 1 tab DAILY PO 09/03/24 10:00 Prednisone 20 mg QAM PO 09/03/24 07:00 09/03/24 06:07 20 MG Furosemide 40 mg BIDD IV 09/02/24 18:00 09/03/24 18:13 40 MG Albuterol 2.5 mg Q6HPRN PRN NEB 09/02/24 11:15 09/03/24 07:57 2.5 MG Ipratropium [place] 0.5 mg Q6HPRN PRN NEB 09/02/24 11:15 09/03/24 07:57 0.5 MG Aspirin 81 mg DAILY PO 09/03/24 10:00 09/03/24 08:38 81 MG Acetaminophen 325 mg Q4HP PRN PO 09/02/24 11:15 Docusate Sodium 100 mg DAILY PO 09/03/24 10:00 09/03/24 08:38 100 MG Ondansetron HCl 4 mg Q4HP PRN IV 09/02/24 11:15 Nitroglycerin 0.4 mg Q5MINP PRN SL 09/02/24 11:15 Sacubitril/ Valsartan 1 tab BID PO 09/03/24 10:00 09/03/24 21:58 1 TAB Carvedilol 3.125 mg Q12HR PO 09/03/24 10:00 09/03/24 21:58 3.125 MG objective Gen.: Patient lying in bed in no apparent distress. On supplemental oxygen. Head: Normocephalic, atraumatic. Eyes: EOMI/PERRLA. Ears: Normal hearing. Normal anatomy. Neck/trachea: Trachea midline, supple. Nose: Normal external anatomy. Mouth: Moist mucous membranes. Chest: Decreased air entry bilaterally. No wheezing or rhonchi. Cardiovascular: Positive S1, positive S2. Regular rate and rhythm. Abdomen: Positive bowel sounds in all 4 quadrants. Soft, non-tender, non- distended. : Deferred. Rectal: Deferred. Skin: Warm, dry. Intact. Extremities: 2+ radial pulses bilaterally. No lower extremity edema. Neuro: Awake, alert, oriented x3. No gross motor or sensory deficits. Cranial nerves II through XII intact. Gait not assessed. laboratory and microbiology Laboratory Tests 09/03/24 13:10 09/03/24 02:53 Test 09/03/24 13:10 Range/Units Serum Glucose 210 H 74-106 mg/dL Assessment/Plan Impression: Chronic obstructive pulmonary disease exacerbation Chronic interstitial lung disease exacerbation Bronchiectasis Trace right pleural effusion H/o pulmonary embolism New onset CHF Events: Remains on supplemental oxygen, 3 LPM NC Taper O2 as tolerated CTA reviewed, demonstrates Trace right pleural effusion. Bronchiectasis. Chronic interstitial lung disease noted in the upper lobes. No pulmonary embolism. Cardiology recs appreciated LLE improving Diurese as tolerated w/ Lasix Monitor renal function. Monitor electrolytes. Supplement as necessary Potassium supplementation Monitor ins and outs Labs and imaging reviewed. Rest of plan as noted below. Plan: Supplemental oxygen Titrate to keep O2 sats above 92%. Continue bronchodilators Continue steroids Diurese to euvolemia Monitor renal function. Monitor electrolytes. Supplement as necessary Monitor ins and outs Cardiology recs appreciated. Venous Doppler negative for DVT. CTA showed no pulmonary embolism. Discontinue anti-coagulation Prognosis: Poor given patient's multiple co-morbidities. Rest of plan per hospitalist and other consultants. Thank you for allowing me to participate in this patient's care. Further recommendations will depend on the patient's clinical course. Please do not hesitate to contact me if you have any questions or concerns. This medical document was created using an electronic medical record system with [employer] dictation system. Although these documentations are being carefully reviewed, there may still be some phonetic and typographical changes. The errors are purely typographical, due to imperfection on the software program, and do not reflect any compromise in the patient's medical care. Plan discussed with: Patient, Other (YISSEL Castañeda) TOMMY AGUILAR MD Sep 03, 2024 23:20
[2024-09-04] VITALS (12 sets, daily range): BP systolic 115–137; BP diastolic 75–87; PULSE 50–103; RESP 16–20; TEMP 97.5–98.1; O2SAT 95–100
[2024-09-04 06:35] LABS: Basophils # (auto) 0 10 ^3/uL (0-0.2); Eosinophils # (auto) 0.1 10 ^3/uL (0-0.8); Hemoglobin 11.3 g/dL (12.2-16.2); Lymphocytes # (auto) 1.8 10 ^3/uL (0.4-5.4); Mean Corpuscular Hemoglobin 34.8 pg (28.0-32.0); Monocytes # (auto) 0.4 10 ^3/uL (0-1.3); Neutrophils # (auto) 1.6 10 ^3/uL (1.6-8.6); Nucleated Red Blood Cells % 0.2 %
[2024-09-04 06:45] LABS: Basophils % (auto) 0.7 % (0.0-2.0); Eosinophils % (auto) 2.5 % (0.0-7.0); Hematocrit 31.7 % (36.0-46.0); Lymphocytes % (auto) 45.3 % (10.0-50.0); Mean Corpuscular Hgb Conc. 35.7 g/dL (32.0-36.0); Mean Corpuscular Volume 97.4 fL (80.0-100.0); Monocytes % (auto) 10.3 % (0.0-12.0); Neutrophils % (auto) 41.2 % (37.0-80.0); Platelet Count (auto) 171 10^3/uL (140-450); Red Blood Cells 3.25 10^6/uL (4.0-5.20)
--- NOTE | 2024-09-04 07:18 | DVHPN2 ---
Progress Note - Dictate Date Seen: Sep 04, 2024 Medical Necessity Reason Pt with a Central, PICC or Fol: No vital signs Vital Sign Date Time Temp Pulse Resp B/P (MAP) Pulse Ox O2 Delivery O2 Flow Rate FiO2 09/04/24 06:08 129/84 09/04/24 05:00 97.7 90 19 100 97.7 09/03/24 21:19 Nasal Cannula 3.0 09/03/24 21:19 32 Total Intake and Output 09/03/24 09/03/24 09/04/24 15:00 23:00 07:00 Intake Total 700 ml 700 ml Balance 700 ml 700 ml medications Current Medications Medications Dose Ordered Sig/Rakan Route Start Time Stop Time Status Last Admin Dose Admin Atorvastatin Calcium 20 mg QPM PO 09/02/24 18:00 09/03/24 18:13 20 MG Hydroxychloroquine Sulfate 200 mg DAILY PO 09/03/24 10:00 09/03/24 08:39 200 MG Oxycodone/ Acetaminophen 2 tab TIDPRN PRN PO 09/02/24 11:15 09/04/24 05:22 2 TAB Rivaroxaban 20 mg DAILY PO 09/03/24 10:00 Trazodone HCl 50 mg HS PO 09/02/24 22:00 09/03/24 21:57 50 MG Zolpidem Tartrate 5 mg HS PRN PO 09/02/24 11:15 09/02/24 23:01 5 MG Amitriptyline HCl 50 mg QPM PO 09/02/24 18:00 09/03/24 18:13 50 MG Patient Own Medication 1 tab DAILY PO 09/03/24 10:00 Prednisone 20 mg QAM PO 09/03/24 07:00 09/04/24 06:06 20 MG Furosemide 40 mg BIDD IV 09/02/24 18:00 09/04/24 06:08 40 MG Albuterol 2.5 mg Q6HPRN PRN NEB 09/02/24 11:15 09/03/24 07:57 2.5 MG Ipratropium [place] 0.5 mg Q6HPRN PRN NEB 09/02/24 11:15 09/03/24 07:57 0.5 MG Aspirin 81 mg DAILY PO 09/03/24 10:00 09/03/24 08:38 81 MG Acetaminophen 325 mg Q4HP PRN PO 09/02/24 11:15 Docusate Sodium 100 mg DAILY PO 09/03/24 10:00 09/03/24 08:38 100 MG Ondansetron HCl 4 mg Q4HP PRN IV 09/02/24 11:15 Nitroglycerin 0.4 mg Q5MINP PRN SL 09/02/24 11:15 Sacubitril/ Valsartan 1 tab BID PO 09/03/24 10:00 09/03/24 21:58 1 TAB Carvedilol 3.125 mg Q12HR PO 09/03/24 10:00 09/03/24 21:58 3.125 MG laboratory and microbiology Laboratory Tests 09/04/24 05:35 09/03/24 13:10 Test 09/03/24 13:10 Range/Units Serum Glucose 210 H 74-106 mg/dL Assessment/Plan Patient is a 69-year-old female who presented with shortness of breath and chest tightness for few days. She did have some lower extremity edema and complained of dyspnea on exertion also. She is known to have advanced COPD and is on home oxygen. Cardiology is involved for cardiac aspects of care. It is of note that the patient comes to our office as outpatient. She has been noncompliant with her medication and followups. The last visit in the office was in October 2023 and she repeatedly missed her follow-up visits since then. She does have baseline history of increased troponin, for which had left heart catheterization in July 2023 (nonrevealing of coronary artery disease). No JVD. [place] and red mucosa. Scattered rhonchi in the lungs. Cardiac: Regular, no thrill. Systolic murmur 3 out of 6 in the apex. Abdomen is soft. No gross mass. No hepatomegaly. Extremities: Edema of lower extremities is seen, left more than right. Dorsalis pedis is 1+ bilateral Past medical history includes advanced COPD/Emphysema on home oxygen, Bronchiectasis, Rheumatoid Arthritis (goes to Rheumatology/Dr. Hong), Hypertension, CKD, anxiety disorder, insomnia, obesity, peripheral artery disease, hyperlipidemia, prediabetes, questionable Paroxysmal A-fib (mentioned in old notes, no EKG/telemetry rhythm were available to review) and old history of DVT (for which she has been kept on Xarelto). She did have old history of cholecystectomy. She does use marijuana occasionally. It is of note that the nuclear stress test of May 2020 was abnormal (performed in the office). Does have history of noncompliance to medication and followups. Outside echocardiogram of August 2022 had reported preserved left ventricular systolic function, mild valvular disease and right ventricular systolic pressure 31 mmHg Echocardiogram of August 02, 2023 had reported, technically difficult study, ejection fraction of 50%, sigmoid septum, mild left atrial enlargement, [id number]-rquuclbo aortic insufficiency, mild MR. As there was no good tricuspid regurgitation jet, right ventricular systolic pressure could not be estimated. Cardiac catheterization of August 03, 2023 had reported normal coronaries Hemoglobin: 10.7 - 11.0 - 10.4 - 11.3 D-dimer: 1.53 Creatinine: 1.12 - 1.08 - 1.21 Potassium: 3.4 - 3.3 - 4.4 AST/ALT: 53/47 - 42/49 - 36/51 BNP: 993.85 Troponin (high sensitive): 91 - 77 - 72 Chest x-ray reported: Impression: 1. Right lower zone haziness, likely infiltrates/artifacts were due to overlying soft tissues. 2. Cardiomegaly. Venous Doppler of lower extremities reported: Impression: No sonographic evidence of bilateral lower extremity deep venous thrombosis. CTA of lungs reported: Trace right pleural effusion. Bronchiectasis. Chronic interstitial lung disease is noted in the upper lobes. No pulmonary embolism. EKG revealed NSR, LAHB Telemetry reveals sinus rhythm with paced ventricle Echocardiogram reported: Left ventricle: Left ventricle was mildly dilated. Concentric left ventricular hypertrophy was seen. LVEF was around 25%. Diffuse hypokinesis of left ventricle was seen. LVEDP was assessed to be elevated. Right ventricle was dilated with reduced systolic function. Both atria were mildly dilated. Aortic valve: Aortic valve was trileaflet. There was no aortic stenosis. There was moderate aortic/mitral/tricuspid regurgitation. Pulmonary valve reveals mild insufficiency. Right ventricular systolic pressure was assessed that 60 mm Hg. There was no pericardial effusion. Patient is a 69-year-old female who presented with dyspnea on exertion/peripheral edema and questionable chest tightness. Does have minimal increase/flat troponin. Presentation is not considered ACS. It is of note that the patient had a normal left heart catheterization 1 year ago and also has baseline increase of troponin. Patient is found to have heart failure in echocardiogram. Which could have contributed to the clinical picture. Left ventricular systolic function has decreased and this finding is new for the patient. Recognizing old left heart catheterization results, assessment is nonischemic cardiomyopathy. Does have some valvular regurgitation. Does have history of noncompliance which could have contributed to the clinical picture. Has not been on guideline directed medical therapy. Does have old history of DVT and has been kept on Xarelto. Is found to have abnormal D-dimer and it is prudent to rule out acute pulmonary emboli (recognizing history of noncompliance). Shortness of breath Acute on chronic heart failure, systolic Systolic heart failure, new diagnosis COPD exacerbation Pulmonary Hypertension Pneumonia, community-acquired Troponin, increased, demand ischemia Noncompliance, history of COPD, advanced on home oxygen Hyperlipidemia History of DVT Questionable paroxysmal AFib VHD: Moderate MR/TR/AI Bronchiectasis Cardiac suggestion for management: Manage on telemetry IV diuresis Follow-up electrolytes and kidney function test and correct abnormalities. Keep potassium above 4 and magnesium above 2 Guideline directed medical therapy for systolic heart failure at this point On Entresto On carvedilol Pulmonary follow-up is advised Further evaluation and management depends on the above and clinical course A total of 55 minutes was spent reviewing the patient record, examining the patient, making a diagnostic and therapeutic plan, discussing this plan with medical personnel, following up on diagnostic studies and following the patient for clinical stability excluding any and all procedures. At least 50% of this time was spent in direct, goop-sq-[id number] contact. Thank you for allowing me to participate in this patient's care. Further recommendations will depend on patient's clinical course. Please do not hesitate to contact me if you have any questions or concerns. This medical document was created using electronic medical record system with [employer] dictation system. Although this document has been carefully reviewed, there may still be some phonetic and typographical errors. These areas are purely typographical due to the imperfection of the software programs, and do not reflect any compromise in the patient's medical care. Plan discussed with: Patient, Other (nurse) DIPAK READ MD Sep 04, 2024 07:17
[2024-09-04] MEDS: RIVAROXABAN 20 MG TAB PO SCH (10:01)
--- NOTE | 2024-09-04 11:01 | ECG ---
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
--- NOTE | 2024-09-04 11:31 | DVHPN2 ---
Subjective Denies any symptoms. For set her breathing is better. Still noticeable swelling to left lower extremity. Reviewed: Care Plan, H&P, Labs, Medications Changes from previous H/P or p: No Changes General: Per HPI Eyes: No Pain, No Vision change, No Conjunctivae inflammation, No Eyelid inflammation, No Other, No Redness ENT: No Ear pain, No Ear discharge, No Nose pain, No Nose discharge, No Nose congestion, No Mouth pain, No Mouth swelling, No Throat pain, No Throat swelling, No Other Cardiovascular: No Chest Pain, No Palpitations, No Orthopnea, No Paroxysmal Noc. Dyspnea, No Edema, No Lt Headedness, No Other Respiratory: No Cough, No Dry; Shortness of breath, SOB with excertion; No Wheezing, No Hemoptysis, No Pleuritic Pain, No Sputum, No Other Gastrointestinal: No Nausea, No Vomiting, No Abdominal Pain, No Diarrhea, No Constipation, No Melena, No Hematochezia, No Other Genitourinary: No Dysuria, No Frequency, No Incontinence, No Hematuria, No Retention, No Other Musculoskeletal: No other, No neck pain, No shoulder pain, No arm pain, No back pain, No hand pain, No leg pain, No foot pain Skin: No Rash, No Lesions, No Jaundice, No Bruising, No Other Objective Vitals Vital Signs Date Time Temp Pulse Resp B/P (MAP) Pulse Ox O2 Delivery O2 Flow Rate FiO2 09/04/24 10:01 87 122/76 09/04/24 09:00 98.1 18 97 98.1 09/04/24 08:00 Nasal Cannula* 3 32 Intake/Output Intake and Output 09/04/24 07:00 Intake Total 1400 ml Balance 1400 ml Intake Oral 1400 ml # Voids 8 General Appearance: Alert, Oriented X3, Cooperative, No acute distress HEENT: Atraumatic, PERRLA Lungs: Clear to auscultation, Normal air movement Cardiovascular: Normal S1, Normal S2 Abdomen: Normal bowel sounds Extremities: Normal pulses, Other (Plus one pitting edema to lower extremity) Skin: Dry, Intact Psych/Mental Status: Mental status NL, Mood NL Medications Current Medications Medications Dose Ordered Sig/Rakan Route Start Time Stop Time Status Last Admin Dose Admin Atorvastatin Calcium 20 mg QPM PO 09/02/24 18:00 09/03/24 18:13 20 MG Hydroxychloroquine Sulfate 200 mg DAILY PO 09/03/24 10:00 09/04/24 10:00 200 MG Oxycodone/ Acetaminophen 2 tab TIDPRN PRN PO 09/02/24 11:15 09/04/24 05:22 2 TAB Rivaroxaban 20 mg DAILY PO 09/03/24 10:00 09/04/24 10:01 20 MG Trazodone HCl 50 mg HS PO 09/02/24 22:00 09/03/24 21:57 50 MG Zolpidem Tartrate 5 mg HS PRN PO 09/02/24 11:15 09/02/24 23:01 5 MG Amitriptyline HCl 50 mg QPM PO 09/02/24 18:00 09/03/24 18:13 50 MG Patient Own Medication 1 tab DAILY PO 09/03/24 10:00 Prednisone 20 mg QAM PO 09/03/24 07:00 09/04/24 06:06 20 MG Furosemide 40 mg BIDD IV 09/02/24 18:00 09/04/24 06:08 40 MG Albuterol 2.5 mg Q6HPRN PRN NEB 09/02/24 11:15 09/04/24 07:49 2.5 MG Ipratropium [place] 0.5 mg Q6HPRN PRN NEB 09/02/24 11:15 09/04/24 07:49 0.5 MG Acetaminophen 325 mg Q4HP PRN PO 09/02/24 11:15 Docusate Sodium 100 mg DAILY PO 09/03/24 10:00 09/04/24 10:00 100 MG Ondansetron HCl 4 mg Q4HP PRN IV 09/02/24 11:15 Nitroglycerin 0.4 mg Q5MINP PRN SL 09/02/24 11:15 Sacubitril/ Valsartan 1 tab BID PO 09/03/24 10:00 09/04/24 10:00 1 TAB Carvedilol 3.125 mg Q12HR PO 09/03/24 10:00 09/04/24 10:01 3.125 MG Laboratory Results Laboratory Tests 09/03/24 13:10 09/04/24 05:35 Chemistry Test 09/03/24 13:10 Albumin 3.9 g/dL (3.2-4.8) Calcium Level 9.6 mg/dL (8.7-10.4) Total Protein 6.6 g/dL (5.7-8.2) Coagulation Test 09/03/24 13:10 Prothrombin Time 11.6 sec (9.3-11.8) Prothrombin Time INR 1.11 (0.9-1.15) Activated Partial Thromboplast Time 30.5 SEC (24.5-34.5) LFT Test 09/03/24 13:10 Alanine Aminotransferase (ALT) 51 U/L (7-40) H Alkaline Phosphatase 98 U/L (46-116) Aspartate Amino Transferase (AST) 36 U/L (13-40) Total Bilirubin 0.9 mg/dL (0.2-1.0) Urinalysis Test 09/02/24 04:01 Urine Color Yellow (Yellow) Urine Clarity Clear (Clear) Urine pH 6.5 (5.0-9.0) Urine Specific [place] 1.036 (1.001-1.035) Urine Protein 3+ (Negative) H Urine Ketones Trace (Negative) Urine Blood 1+ /uL (Negative) H Urine Nitrite Negative (Negative) Urine Bilirubin Negative (Negative) Urine Urobilinogen 3 mg/dL (Negative) H Urine Leukocyte Esterase Negative /uL (Negative) Urine RBC 49 /hpf (0 - 4) Urine Microscopic WBC 21 /HPF (0-5) H Urine Squamous Epithelial Cells Mod /hpf (<5) Urine Transitional Epithelial Cells Few /hpf (<2) Urine Renal Epithelial Cells Few /hpf (None Seen) Urine Bacteria Few /hpf (None Seen) H Urine Hyaline Casts Many /lpf (0 - 2) Urine Mucus Few (None Seen) Urine Glucose Normal mg/dL (Normal) Labs and/or images reviewed: Labs reviewed by me, Image(s) reviewed by me Assessment/Plan Assessment/Plan Impression: -acute hypoxic respiratory failure -acute decompensated systolic heart failure with ejection fraction 25% -obesity -history of pulmonary embolism, ruled out on this admission -COPD -DVT ruled out -hypokalemia -anemia of chronic disease Plan: Events: Swelling improved to right lower extremity, left lower extremity still has plus two edema. Patient ambulating with an proved activity tolerance. -continue goal-directed medical therapy per Cardiology recommendations: Currently on Entresto and Coreg, for which the patient is tolerating. Add Jardiance 10 mg p.o. day -continue anticoagulation with Xarelto -continue IV diuresis -bronchodilators as needed -O2 supplementation to keep saturation greater than 90% -repeat labs in a.m. -potassium replacement -persistent swelling to lower extremity. re-evaluate for discharge tomorrow Total time spent with patient discussing and formulating plan of care: 35 minutes. This medical document was created using an electronic medical record system with [employer] dictation system. Although this document has been carefully reviewed, there may still be some phonetic and typographical errors. These areas are purely typographical due to imperfections of the software programs, and do not reflect any compromise in the patient's medical care. Plan discussed with: Patient, Other (RN) My Orders Orders - PAULY KENNEDY NP Procedure Category Date Status Time May Shower NEHEMIAS 09/03/24 In Process 16:54 Date of Service: Sep 04, 2024 Billing Provider: PAULY KENNEDY NP Common Visit Codes: [id number] INP/OBS CARE(HIGH) PAULY KENNEDY NP Sep 04, 2024 11:31
[2024-09-04] MEDS: EMPAGLIFLOZIN 10 MG TAB PO SCH (17:57)
--- NOTE | 2024-09-04 22:53 | DVHPN2 ---
Progress Note - Dictate Date Seen: Sep 04, 2024 Medical Necessity Reason Pt with a Central, PICC or Fol: No Subjective Patient seen and examined at bedside. Remains on supplemental oxygen Overnight events reviewed. vital signs Vital Sign Date Time Temp Pulse Resp B/P (MAP) Pulse Ox O2 Delivery O2 Flow Rate FiO2 09/04/24 22:19 103 129/78 09/04/24 21:00 97.5 19 98 97.5 09/04/24 19:28 Room Air 0.0 09/04/24 19:28 21 Total Intake and Output 09/03/24 09/03/24 09/04/24 15:00 23:00 07:00 Intake Total 700 ml 700 ml Balance 700 ml 700 ml medications Current Medications Medications Dose Ordered Sig/Rakan Route Start Time Stop Time Status Last Admin Dose Admin Atorvastatin Calcium 20 mg QPM PO 09/02/24 18:00 09/04/24 17:56 20 MG Hydroxychloroquine Sulfate 200 mg DAILY PO 09/03/24 10:00 09/04/24 10:00 200 MG Oxycodone/ Acetaminophen 2 tab TIDPRN PRN PO 09/02/24 11:15 09/04/24 22:18 2 TAB Rivaroxaban 20 mg DAILY PO 09/03/24 10:00 09/04/24 10:01 20 MG Trazodone HCl 50 mg HS PO 09/02/24 22:00 09/04/24 22:16 50 MG Zolpidem Tartrate 5 mg HS PRN PO 09/02/24 11:15 09/04/24 22:18 5 MG Amitriptyline HCl 50 mg QPM PO 09/02/24 18:00 09/04/24 17:56 50 MG Patient Own Medication 1 tab DAILY PO 09/03/24 10:00 09/04/24 14:13 1 TAB Prednisone 20 mg QAM PO 09/03/24 07:00 09/04/24 06:06 20 MG Furosemide 40 mg BIDD IV 09/02/24 18:00 09/04/24 17:57 40 MG Albuterol 2.5 mg Q6HPRN PRN NEB 09/02/24 11:15 09/04/24 07:49 2.5 MG Ipratropium [place] 0.5 mg Q6HPRN PRN NEB 09/02/24 11:15 09/04/24 07:49 0.5 MG Acetaminophen 325 mg Q4HP PRN PO 09/02/24 11:15 Docusate Sodium 100 mg DAILY PO 09/03/24 10:00 09/04/24 10:00 100 MG Ondansetron HCl 4 mg Q4HP PRN IV 09/02/24 11:15 Nitroglycerin 0.4 mg Q5MINP PRN SL 09/02/24 11:15 Sacubitril/ Valsartan 1 tab BID PO 09/03/24 10:00 09/04/24 22:16 1 TAB Carvedilol 3.125 mg Q12HR PO 09/03/24 10:00 09/04/24 22:19 3.125 MG Empaglifozin 10 mg DAILY PO 09/04/24 11:30 09/04/24 17:57 10 MG objective Gen.: Patient lying in bed in no apparent distress. On supplemental oxygen. Head: Normocephalic, atraumatic. Eyes: EOMI/PERRLA. Ears: Normal hearing. Normal anatomy. Neck/trachea: Trachea midline, supple. Nose: Normal external anatomy. Mouth: Moist mucous membranes. Chest: Decreased air entry bilaterally. No wheezing or rhonchi. Cardiovascular: Positive S1, positive S2. Regular rate and rhythm. Abdomen: Positive bowel sounds in all 4 quadrants. Soft, non-tender, non- distended. : Deferred. Rectal: Deferred. Skin: Warm, dry. Intact. Extremities: 2+ radial pulses bilaterally. No lower extremity edema. Neuro: Awake, alert, oriented x3. No gross motor or sensory deficits. Cranial nerves II through XII intact. Gait not assessed. laboratory and microbiology Laboratory Tests 09/04/24 05:35 09/03/24 13:10 Test 09/03/24 13:10 Range/Units Serum Glucose 210 H 74-106 mg/dL Assessment/Plan Impression: Chronic obstructive pulmonary disease exacerbation Chronic interstitial lung disease exacerbation Bronchiectasis Trace right pleural effusion H/o pulmonary embolism New onset CHF Events: Remains on supplemental oxygen, 3 LPM NC Taper O2 as tolerated Bronchodilators Continue steroid course On Xarelto Cardiology recs appreciated LLE improving Diurese as tolerated w/ Lasix Monitor renal function. Monitor electrolytes. Supplement as necessary Monitor ins and outs CTA demonstrated trace right pleural effusion. Bronchiectasis. Chronic interstitial lung disease noted in the upper lobes. No pulmonary embolism. Labs and imaging reviewed. Rest of plan as noted below. Plan: Supplemental oxygen Titrate to keep O2 sats above 92%. Continue bronchodilators Continue steroids Diurese to euvolemia Monitor renal function. Monitor electrolytes. Supplement as necessary Monitor ins and outs Cardiology recs appreciated. Venous Doppler negative for DVT. CTA showed no pulmonary embolism. Prognosis: Poor given patient's multiple co-morbidities. Rest of plan per hospitalist and other consultants. Thank you for allowing me to participate in this patient's care. Further recommendations will depend on the patient's clinical course. Please do not hesitate to contact me if you have any questions or concerns. This medical document was created using an electronic medical record system with [employer] dictation system. Although these documentations are being carefully reviewed, there may still be some phonetic and typographical changes. The errors are purely typographical, due to imperfection on the software program, and do not reflect any compromise in the patient's medical care. Dietary Evaluation Review Comments: 1. Continue current cardaic diet as tolerated 2. Encourage continued good oral intakes >75% of meals Expected Outcomes/Goals: Weight maintenance, maintain adequate nutrition. Plan discussed with: Patient, Other (RN) TOMMY AGUILAR MD Sep 04, 2024 22:53
[2024-09-05 01:00] VITALS: BP 122/75; PULSE 90; RESP 19; TEMP 98.4; O2SAT 100
[2024-09-05 05:00] VITALS: BP_SYST 116; BP_SYST 76; BP_DIAS 72; PULSE 90; RESP 18; TEMP 97.9; O2SAT 100
--- NOTE | 2024-09-05 05:55 | DVHPN2 ---
Progress Note - Dictate Date Seen: Sep 05, 2024 Medical Necessity Reason Pt with a Central, PICC or Fol: No vital signs Vital Sign Date Time Temp Pulse Resp B/P (MAP) Pulse Ox O2 Delivery O2 Flow Rate FiO2 09/05/24 05:00 97.9 90 18 76/ 100 97.9 09/04/24 20:00 Nasal Cannula* 3 32 Total Intake and Output 09/04/24 09/04/24 09/05/24 15:00 23:00 07:00 Intake Total 1108 ml 800 ml Balance 1108 ml 800 ml medications Current Medications Medications Dose Ordered Sig/Rakan Route Start Time Stop Time Status Last Admin Dose Admin Atorvastatin Calcium 20 mg QPM PO 09/02/24 18:00 09/04/24 17:56 20 MG Hydroxychloroquine Sulfate 200 mg DAILY PO 09/03/24 10:00 09/04/24 10:00 200 MG Oxycodone/ Acetaminophen 2 tab TIDPRN PRN PO 09/02/24 11:15 09/04/24 22:18 2 TAB Rivaroxaban 20 mg DAILY PO 09/03/24 10:00 09/04/24 10:01 20 MG Trazodone HCl 50 mg HS PO 09/02/24 22:00 09/04/24 22:16 50 MG Zolpidem Tartrate 5 mg HS PRN PO 09/02/24 11:15 09/04/24 22:18 5 MG Amitriptyline HCl 50 mg QPM PO 09/02/24 18:00 09/04/24 17:56 50 MG Patient Own Medication 1 tab DAILY PO 09/03/24 10:00 09/04/24 14:13 1 TAB Prednisone 20 mg QAM PO 09/03/24 07:00 09/04/24 06:06 20 MG Furosemide 40 mg BIDD IV 09/02/24 18:00 09/04/24 17:57 40 MG Acetaminophen 325 mg Q4HP PRN PO 09/02/24 11:15 Docusate Sodium 100 mg DAILY PO 09/03/24 10:00 09/04/24 10:00 100 MG Ondansetron HCl 4 mg Q4HP PRN IV 09/02/24 11:15 Nitroglycerin 0.4 mg Q5MINP PRN SL 09/02/24 11:15 Sacubitril/ Valsartan 1 tab BID PO 09/03/24 10:00 09/04/24 22:16 1 TAB Carvedilol 3.125 mg Q12HR PO 09/03/24 10:00 09/04/24 22:19 3.125 MG Empaglifozin 10 mg DAILY PO 09/04/24 11:30 09/04/24 17:57 10 MG laboratory and microbiology Laboratory Tests 09/04/24 05:35 09/03/24 13:10 Test 09/03/24 13:10 Range/Units Serum Glucose 210 H 74-106 mg/dL Assessment/Plan Patient is a 69-year-old female who presented with shortness of breath and chest tightness for few days. She did have some lower extremity edema and complained of dyspnea on exertion also. She is known to have advanced COPD and is on home oxygen. Cardiology is involved for cardiac aspects of care. It is of note that the patient comes to our office as outpatient. She has been noncompliant with her medication and followups. The last visit in the office was in October 2023 and she repeatedly missed her follow-up visits since then. She does have baseline history of increased troponin, for which had left heart catheterization in July 2023 (nonrevealing of coronary artery disease). No JVD. [place] and red mucosa. Scattered rhonchi in the lungs. Cardiac: Regular, no thrill. Systolic murmur 3 out of 6 in the apex. Abdomen is soft. No gross mass. No hepatomegaly. Extremities: Edema of lower extremities is seen, left more than right. Dorsalis pedis is 1+ bilateral Past medical history includes advanced COPD/Emphysema on home oxygen, Bronchiectasis, Rheumatoid Arthritis (goes to Rheumatology/Dr. Hong), Hypertension, CKD, anxiety disorder, insomnia, obesity, peripheral artery disease, hyperlipidemia, prediabetes, questionable Paroxysmal A-fib (mentioned in old notes, no EKG/telemetry rhythm were available to review) and old history of DVT (for which she has been kept on Xarelto). She did have old history of cholecystectomy. She does use marijuana occasionally. It is of note that the nuclear stress test of May 2020 was abnormal (performed in the office). Does have history of noncompliance to medication and followups. Outside echocardiogram of August 2022 had reported preserved left ventricular systolic function, mild valvular disease and right ventricular systolic pressure 31 mmHg Echocardiogram of August 02, 2023 had reported, technically difficult study, ejection fraction of 50%, sigmoid septum, mild left atrial enlargement, [id number] aortic insufficiency, mild MR. As there was no good tricuspid regurgitation jet, right ventricular systolic pressure could not be estimated. Cardiac catheterization of August 03, 2023 had reported normal coronaries Hemoglobin: 10.7 - 11.0 - 10.4 - 11.3 D-dimer: 1.53 Creatinine: 1.12 - 1.08 - 1.21 Potassium: 3.4 - 3.3 - 4.4 AST/ALT: 53/47 - 42/49 - 36/51 BNP: 993.85 Troponin (high sensitive): 91 - 77 - 72 Chest x-ray reported: Impression: 1. Right lower zone haziness, likely infiltrates/artifacts were due to overlying soft tissues. 2. Cardiomegaly. Venous Doppler of lower extremities reported: Impression: No sonographic evidence of bilateral lower extremity deep venous thrombosis. CTA of lungs reported: Trace right pleural effusion. Bronchiectasis. Chronic interstitial lung disease is noted in the upper lobes. No pulmonary embolism. EKG revealed NSR, LAHB Telemetry reveals sinus rhythm with paced ventricle Echocardiogram reported: Left ventricle: Left ventricle was mildly dilated. Concentric left ventricular hypertrophy was seen. LVEF was around 25%. Diffuse hypokinesis of left ventricle was seen. LVEDP was assessed to be elevated. Right ventricle was dilated with reduced systolic function. Both atria were mildly dilated. Aortic valve: Aortic valve was trileaflet. There was no aortic stenosis. There was moderate aortic/mitral/tricuspid regurgitation. Pulmonary valve reveals mild insufficiency. Right ventricular systolic pressure was assessed that 60 mm Hg. There was no pericardial effusion. Patient is a 69-year-old female who presented with dyspnea on exertion/peripheral edema and questionable chest tightness. Does have minimal increase/flat troponin. Presentation is not considered ACS. It is of note that the patient had a normal left heart catheterization 1 year ago and also has baseline increase of troponin. Patient is found to have heart failure in echocardiogram. Which could have contributed to the clinical picture. Left ventricular systolic function has decreased and this finding is new for the patient. Recognizing old left heart catheterization results, assessment is nonischemic cardiomyopathy. Does have some valvular regurgitation. Does have history of noncompliance which could have contributed to the clinical picture. Has not been on guideline directed medical therapy. Does have old history of DVT and has been kept on Xarelto. Is found to have abnormal D-dimer and it is prudent to rule out acute pulmonary emboli (recognizing history of noncompliance). Shortness of breath Acute on chronic heart failure, systolic Systolic heart failure, new diagnosis COPD exacerbation Pulmonary Hypertension Pneumonia, community-acquired Troponin, increased, demand ischemia Noncompliance, history of COPD, advanced on home oxygen Hyperlipidemia History of DVT Questionable paroxysmal AFib VHD: Moderate MR/TR/AI Bronchiectasis Cardiac suggestion for management: Manage on telemetry IV diuresis Follow-up electrolytes and kidney function test and correct abnormalities. Keep potassium above 4 and magnesium above 2 Guideline directed medical therapy for systolic heart failure at this point On Entresto On carvedilol Cardiac shoemaker, can be followed as outpatient Further evaluation and management depends on the above and clinical course A total of 55 minutes was spent reviewing the patient record, examining the patient, making a diagnostic and therapeutic plan, discussing this plan with medical personnel, following up on diagnostic studies and following the patient for clinical stability excluding any and all procedures. At least 50% of this time was spent in direct, [id number] contact. Thank you for allowing me to participate in this patient's care. Further recommendations will depend on patient's clinical course. Please do not hesitate to contact me if you have any questions or concerns. This medical document was created using electronic medical record system with [employer] computerized dictation system. Although this document has been carefully reviewed, there may still be some phonetic and typographical errors. These areas are purely typographical due to the imperfection of the software programs, and do not reflect any compromise in the patient's medical care. Dietary Evaluation Review Comments: 1. Continue current cardaic diet as tolerated 2. Encourage continued good oral intakes >75% of meals Expected Outcomes/Goals: Weight maintenance, maintain adequate nutrition. Plan discussed with: Patient, Other (nurse) DIPAK READ MD Sep 05, 2024 05:55
[2024-09-05 07:30] LABS: Anion Gap 8 (5-15); Potassium 3.7 mmol/L (3.5-5.1); Sodium 136 mmol/L (136-145)
[2024-09-05 07:31] LABS: Calcium 9.8 mg/dL (8.7-10.4)
[2024-09-05 07:34] VITALS: PULSE 101
[2024-09-05 07:36] LABS: BUN/Creatinine Ratio 12.9 (10.0-20.0); Blood Urea Nitrogen 20 mg/dL (9-23)
[2024-09-05 07:39] LABS: Carbon Dioxide 33 mmol/L (20-31); Chloride 95 mmol/L (98-107); Glucose 138 mg/dL (74-106); Magnesium 1.6 mg/dL (1.6-2.6)
[2024-09-05 08:44] VITALS: BP 118/75; PULSE 94; RESP 16; TEMP 97.6; O2SAT 97
[2024-09-05] MEDS ORDERED: CARV-214 PO (10:18)
[2024-09-05] MEDS ORDERED: SACU1TAB PO (10:18)
[2024-09-05] MEDS ORDERED: EMPA1TAB PO (10:18)
[2024-09-05] MEDS ORDERED: FURO1TAB33 PO (10:18)
[2024-09-05] MEDS ORDERED: RESPMIS2 XX (10:22)
[2024-09-05] MEDS ORDERED: ALBU0.084 NEB (10:22)
--- NOTE | 2024-09-05 10:27 | DVHDS2 ---
Discharge Summary Date of Admission Sep 02, 2024 at 11:09 Date of Discharge: Sep 05, 2024 Admitting Diagnosis Community-acquired pneumonia, Gram-positive/Gram-negative etiology Labs/Diagnostic Data: Laboratory Results Test 09/05/24 06:51 09/04/24 05:35 09/03/24 13:10 09/02/24 14:09 Sodium Level 136 mmol/L (136-145) Potassium Level 3.7 mmol/L (3.5-5.1) Chloride Level 95 mmol/L (98-107) Carbon Dioxide Level 33 mmol/L (20-31) Anion Gap 8 (5-15) Blood Urea Nitrogen 20 mg/dL (9-23) Creatinine 1.55 mg/dL (0.550-1.02) Glomerular Filtration Rate Calc 36 mL/min (>90) BUN/Creatinine Ratio 12.9 (10.0-20.0) Serum Glucose 138 mg/dL (74-106) Calcium Level 9.8 mg/dL (8.7-10.4) Magnesium Level 1.6 mg/dL (1.6-2.6) White Blood Count 4.0 10^3/uL (4.4-10.8) Red Blood Count 3.25 10^6/uL (4.0-5.20) Hemoglobin 11.3 g/dL (12.2-16.2) Hematocrit 31.7 % (36.0-46.0) Mean Corpuscular Volume 97.4 fL (80.0-100.0) Mean Corpuscular Hemoglobin 34.8 pg (28.0-32.0) Mean Corpuscular Hemoglobin Concent 35.7 g/dL (32.0-36.0) Red Cell Distribution Width 16.0 % (11.8-14.3) Platelet Count 171 10^3/uL (140-450) Mean Platelet Volume 9.2 fL (6.9-10.8) Neutrophils (%) (Auto) 41.2 % (37.0-80.0) Lymphocytes (%) (Auto) 45.3 % (10.0-50.0) Monocytes (%) (Auto) 10.3 % (0.0-12.0) Eosinophils (%) (Auto) 2.5 % (0.0-7.0) Basophils (%) (Auto) 0.7 % (0.0-2.0) Neutrophils # (Auto) 1.6 10 ^3/uL (1.6-8.6) Lymphocytes # (Auto) 1.8 10 ^3/uL (0.4-5.4) Monocytes # (Auto) 0.4 10 ^3/uL (0-1.3) Eosinophils # (Auto) 0.1 10 ^3/uL (0-0.8) Basophils # (Auto) 0 10 ^3/uL (0-0.2) Nucleated Red Blood Cells 0.2 % Prothrombin Time 11.6 sec (9.3-11.8) Prothrombin Time INR 1.11 (0.9-1.15) Activated Partial Thromboplast Time 30.5 SEC (24.5-34.5) Total Bilirubin 0.9 mg/dL (0.2-1.0) Aspartate Amino Transferase (AST) 36 U/L (13-40) Alanine Aminotransferase (ALT) 51 U/L (7-40) Alkaline Phosphatase 98 U/L (46-116) Total Protein 6.6 g/dL (5.7-8.2) Albumin 3.9 g/dL (3.2-4.8) D-Dimer, Quantitative 1.53 mg/L FEU (0.0-0.49) Troponin I High Sensitivity 72 ng/L (</=34) Test 09/02/24 04:28 09/02/24 04:01 Phosphorus Level 3.6 mg/dL (2.4-5.1) B-Type Natriuretic Peptide 993.85 pg/mL (0-100) Urine Color Yellow (Yellow) Urine Clarity Clear (Clear) Urine pH 6.5 (5.0-9.0) Urine Specific [place] 1.036 (1.001-1.035) Urine Protein 3+ (Negative) Urine Ketones Trace (Negative) Urine Blood 1+ /uL (Negative) Urine Nitrite Negative (Negative) Urine Bilirubin Negative (Negative) Urine Urobilinogen 3 mg/dL (Negative) Urine Leukocyte Esterase Negative /uL (Negative) Urine RBC 49 /hpf (0 - 4) Urine Microscopic WBC 21 /HPF (0-5) Urine Squamous Epithelial Cells Mod /hpf (<5) Urine Transitional Epithelial Cells Few /hpf (<2) Urine Renal Epithelial Cells Few /hpf (None Seen) Urine Bacteria Few /hpf (None Seen) Urine Hyaline Casts Many /lpf (0 - 2) Urine Mucus Few (None Seen) Urine Glucose Normal mg/dL (Normal) Other Laboratory Tests 09/05/24 06:51 09/04/24 05:35 Brief Hx & Hospital Course: History of Present Illness 69-year-old female past medical history COPD on 5 L nasal cannula at home hypertension insomnia hyperlipidemia normal, [place], rheumatoid arthritis, on Xarelto for a blood clot in the legs and she states in her throat surgical history gallbladder surgery chief complaint patient was comes in with shortness of the breath chest pain and swelling to her legs has been going on for two days. Patient states he was shortness of the breath on exertion. She has been goes to have a follow up appointment with Dr. Michelle this coming up Tuesday but she states her symptoms were so bad that she had to come to the ER for evaluation. Patient states she was taking her medications as prescribed. When evaluating patient's chart to imaging it appears patient had an echocardiogram last year August 02, 2023 EF was 50% at that time CBC was unremarkable hemoglobin was 10.7 32.9 potassium was 3.4 chloride was 108 creatinine was 1.12 glucose was 118 AST was 53 ALT was 47 troponin was positive BNP was 998. Chest x-ray showed right lung zone pneumonia. With these findings we will admit and ask for Cardiology evaluation we will provide medication for heart failure. Course of hospitalization: Patient was treated for community-acquired pneumonia, as well as implementing goal-directed medical therapy for patient's acute diastolic/systolic heart failure. Patient had CT angiogram of the chest which was negative for PE called me also revealing COPD changes without any signs of acute pneumonia. Patient was continued on bronchodilators, as well as IV Solu-Medrol. Patient's swelling to lower extremities have improved after aggressive IV diuresis. Cardiology consultation was obtained, with recommendations reviewed. Patient states that her symptoms have improved dramatically in his requesting to be discharged home. Patient will be discharged home and follow up with Dr. Michelle in 1-2 weeks. All goal-directed medical therapy will be continued in addition to re-evaluation of the patient's home medications, for which previous JULIAN inhibitor will be held. Patient will also be started on Lasix 20 mg p.o. daily as it was not listed on her medication reconciliation. She was instructed to also use albuterol nebulizer q.4 hours as needed for COPD exacerbation which has also been provided to the patient. She was agreeable with discharge plan. All questions answered. Physical examination General: Alert and Oriented x3. No acute distress. Well-nourished. Eyes: EOMI. Anicteric. HENT: Moist mucous membranes. Lungs: Clear to auscultation bilaterally. No accessory muscle use. Cardiovascular: Regular rate and rhythm. No murmur. No JVD. Abdomen: Soft, non-tender and non-distended. No palpable masses. Extremities: No edema. Non-tender. Skin: No rashes or lesions. Warm. Neurologic: No focal neurological deficits. CN II-XII grossly intact, but not individually tested. Psychiatric: Cooperative. Appropriate mood and affect. Total time spent with patient discussing and formulating plan of care: 35 minutes. This medical document was created using an electronic medical record system with M[employer]ie dictation system. Although this document has been carefully reviewed, there may still be some phonetic and typographical errors. These areas are purely typographical due to imperfections of the software programs, and do not reflect any compromise in the patient's medical care. Consults/Reason for consult Cardiology: Decompensated heart failure Condition at Discharge: Fair Final Diagnosis/Problems List Acute decompensated systolic heart failure Secondary diagnosis: -acute hypoxic respiratory failure -acute decompensated systolic heart failure with ejection fraction 25% -obesity -history of pulmonary embolism, ruled out on this admission -COPD -DVT ruled out -hypokalemia -anemia of chronic disease -community-acquired pneumonia ruled out Discharge Disposition: Home Discharge Instruct/Medications Diet: Cardiac 2g Na,low cholest Activity: See Comment Follow Up/Referral: Dr. Michelle in 1-2 weeks Medications: Refer to medication reconciliation form 36 Discharge Statement: "Patient was advised to return to the ER or call 911 if any headaches, dizziness, shortness of breath, chest pain, abdominal pain, bleeding, fevers, or worsening of medical condition. Patient was counseled about treatment plan, medications, possible side effects, patientverbalized understanding. All questions were answered to the best of my ability. This discharge took greater then 30 minutes in planning, reviewing documentation, counseling the patient, and discussing with other team members." ASSESSMENT ASSESSMENT Assessment Acute decompensated systolic heart failure Date of Service: Sep 05, 2024 Billing Provider: PAULY KENNEDY NP Common Visit Codes: 52357-NCJ/OBS DISCH DAY >30min PAULY KENNEDY NP Sep 05, 2024 10:27
[2024-09-05 13:00] VITALS: BP 113/75; PULSE 90; RESP 16; TEMP 98; O2SAT 99
--- NOTE | 2024-09-05 23:04 | DVHPN2 ---
Progress Note - Dictate Date Seen: Sep 05, 2024 Medical Necessity Reason Pt with a Central, PICC or Fol: No Subjective Patient seen and examined at bedside. Remains on supplemental oxygen Overnight events reviewed. vital signs Vital Sign Date Time Temp Pulse Resp B/P (MAP) Pulse Ox O2 Delivery O2 Flow Rate FiO2 09/05/24 13:00 98.0 90 16 113/75 (88) 99 98.0 09/05/24 08:16 Nasal Cannula* 3 32 Total Intake and Output 09/04/24 09/04/24 09/05/24 15:00 23:00 07:00 Intake Total 1108 ml 800 ml Balance 1108 ml 800 ml objective Gen.: Patient lying in bed in no apparent distress. On supplemental oxygen. Head: Normocephalic, atraumatic. Eyes: EOMI/PERRLA. Ears: Normal hearing. Normal anatomy. Neck/trachea: Trachea midline, supple. Nose: Normal external anatomy. Mouth: Moist mucous membranes. Chest: Decreased air entry bilaterally. No wheezing or rhonchi. Cardiovascular: Positive S1, positive S2. Regular rate and rhythm. Abdomen: Positive bowel sounds in all 4 quadrants. Soft, non-tender, non- distended. : Deferred. Rectal: Deferred. Skin: Warm, dry. Intact. Extremities: 2+ radial pulses bilaterally. No lower extremity edema. Neuro: Awake, alert, oriented x3. No gross motor or sensory deficits. Cranial nerves II through XII intact. Gait not assessed. laboratory and microbiology Laboratory Tests 09/05/24 06:51 09/04/24 05:35 Test 09/05/24 06:51 Range/Units Serum Glucose 138 H 74-106 mg/dL Assessment/Plan Impression: Chronic obstructive pulmonary disease exacerbation Chronic interstitial lung disease exacerbation Bronchiectasis Trace right pleural effusion H/o pulmonary embolism New onset CHF Events: Remains on supplemental oxygen, 3 LPM NC Taper O2 as tolerated Continue bronchodilators Complete steroid course Continue Xarelto Cardiology recs appreciated LLE improving Diurese as tolerated w/ Lasix Monitor renal function. Monitor electrolytes. Supplement as necessary Monitor ins and outs Patient is stable for discharge from the pulmonary standpoint. Disposition per hospitalist. Follow up in 1-2 weeks in Pulmonary Clinic. CTA demonstrated trace right pleural effusion. Bronchiectasis. Chronic interstitial lung disease noted in the upper lobes. No pulmonary embolism. Labs and imaging reviewed. Rest of plan as noted below. Plan: Supplemental oxygen Titrate to keep O2 sats above 92%. Continue bronchodilators Complete steroid course On Xarelto Diurese to euvolemia Monitor renal function. Monitor electrolytes. Supplement as necessary Monitor ins and outs Cardiology recs appreciated. Venous Doppler negative for DVT. CTA showed no pulmonary embolism. Prognosis: Guarded given patient's multiple co-morbidities. Rest of plan per hospitalist and other consultants. Thank you for allowing me to participate in this patient's care. Further recommendations will depend on the patient's clinical course. Please do not hesitate to contact me if you have any questions or concerns. This medical document was created using an electronic medical record system with M[employer] dictation system. Although these documentations are being carefully reviewed, there may still be some phonetic and typographical changes. The errors are purely typographical, due to imperfection on the software program, and do not reflect any compromise in the patient's medical care. Dietary Evaluation Review Comments: 1. Continue current cardaic diet as tolerated 2. Encourage continued good oral intakes >75% of meals Expected Outcomes/Goals: Weight maintenance, maintain adequate nutrition. Plan discussed with: Patient, Other (YISSEL Pate) TOMMY AGUILAR MD Sep 05, 2024 23:04
== END 2024-09-05 13:20 | disposition home or self-care (01) | DRG 682 ==
LOC: ER 22:22 → OVERFLOW 09-02 11:09 → TELE-WESTW 09-02 11:20
PROVIDERS: ADMIT Nurse Practitioner Acute Care; ATTEND Nurse Practitioner Acute Care
DX: N17.0 Acute kidney failure with tubular necrosis (principal); I50.23 Acute on chronic systolic (congestive) heart failure; J96.01 Acute respiratory failure with hypoxia; I13.0 Hypertensive heart and chronic kidney disease with heart failure and stage 1 through stage 4 chronic kidney disease, or unspecified chronic kidney disease; J44.1 Chronic obstructive pulmonary disease with (acute) exacerbation; J47.0 Bronchiectasis with acute lower respiratory infection; I42.8 Other cardiomyopathies; I25.110 Atherosclerotic heart disease of native coronary artery with unstable angina pectoris; E66.9 Obesity, unspecified; I73.9 Peripheral vascular disease, unspecified; R73.03 Prediabetes; N18.9 Chronic kidney disease, unspecified; E87.6 Hypokalemia; F41.9 Anxiety disorder, unspecified; I27.20 Pulmonary hypertension, unspecified; R74.01 Elevation of levels of liver transaminase levels; J43.9 Emphysema, unspecified; D63.8 Anemia in other chronic diseases classified elsewhere; F17.210 Nicotine dependence, cigarettes, uncomplicated; G47.00 Insomnia, unspecified; E78.5 Hyperlipidemia, unspecified; M06.9 Rheumatoid arthritis, unspecified; I25.2 Old myocardial infarction; Z90.49 Acquired absence of other specified parts of digestive tract; Z79.01 Long term (current) use of anticoagulants; Z86.711 Personal history of pulmonary embolism; Z79.899 Other long term (current) drug therapy; Z91.148 Patient's other noncompliance with medication regimen for other reason; Z86.718 Personal history of other venous thrombosis and embolism; Z68.28 Body mass index [BMI] 28.0-28.9, adult
CPT/HCPCS: 36415; 71045; 71275; 80048; 80053; 81001; 83735; 83880; 84100; 84484; 85025; 85379; 85610; 85730; 93005; 93306; 93970; 94640; 96374; 99291; G0378

== ENCOUNTER 2024-09-06 15:21 | Emergency (ER) | payer MEDICARE, MEDICAID ==
[~2024-09-06] VITALS: Ht 167.6 cm; Wt 75.5 kg
[~2024-09-06 15:21] MED LIST changes: +ALBU0.084 NEB; -BENA40TA71 PO; +CARV-214 PO; -CLON-818 PO; -DOX100T PO; +EMPA1TAB PO; +FURO1TAB33 PO; +GABA-1250 PO; -PRED20TA2 PO; +RESPMIS2 XX; +SACU1TAB PO
--- NOTE | 2024-09-06 15:54 | ED.PDOC ---
History of Present Illness HPI Comments 69 y/o F, with PMHX of arthritis, COPD, HTN, and NV presents to the ED for CC of facial swelling. Per patient's daughter patient was just discharged from [facility] today (09/05/24) for DX: Acute Decompensated Heart Failure and was prescribed multiple prescriptions. Per patient's daughter, patient was given medications as indicated and began to experience facial swelling of the face and lips. Patient's daughter comments on believing symptoms to be related to medications. No other associated symptom's, modifiers, recent injuries or sick contacts at this time. Daughter states that the new medication the patient has taken his Jardiance. Patient's primary care provider advised her to stop that medication prior to coming to the emergency department. Vital signs were stable on arrival. Patient does not display any signs of respiratory distress or respiratory compromise. Time Seen by MD: 15:50 Primary Care Provider: TONIA Reviewed Notes: Nurses Notes, Medications, Allergies Allergies: Coded Allergies: NO KNOWN ALLERGIES (Unverified , 10/10/20) Home Meds Active Scripts Respiratory Therapy Supplies (Full Kit Nebulizer Set) Set Mis, BOX XX Q4HP PRN, #1 Prov:PAULY KENNEDY PROFILING MACHINE OPERATOR 09/05/24 Albuterol Sulfate (Albuterol Sulfate) 0.083 % Neb, 1 VIAL NEB Q4HPRN for 30 Days, #50 VIAL Prov:SALPAULY PRITCHARD PROFILING MACHINE OPERATOR 09/05/24 Furosemide (Lasix) 20 Mg Tb, 1 TAB PO DAILY, #90 TAB 1 Refill Prov:SALPAULY PRITCHARD PROFILING MACHINE OPERATOR 09/05/24 Sacubitril-Valsartan (Entresto 24-26 mg) 1 Tab Tab, 1 TAB PO BID for 30 Days, #60 TAB 3 Refills Prov:SALPAULY PRITCHARD PROFILING MACHINE OPERATOR 09/05/24 Empagliflozin (Jardiance) 10 Mg Tab, 10 MG PO DAILY for 30 Days, #30 TAB 3 Refills Prov:SALDOMINGO PRITCHARDPH PROFILING MACHINE OPERATOR 09/05/24 Carvedilol (COREG) 3.125 Mg Tab, 3.125 MG PO Q12HR for 30 Days, #60 TAB 3 Refills Prov:SALPAULY PRITCHARD PROFILING MACHINE OPERATOR 09/05/24 Rivaroxaban (Xarelto Tablet) 20 Mg Tb, 20 MG PO DAILY for 30 Days, #30 TAB 2 Refills Prov:KRIS JO MD 08/05/23 Reported Medications Gabapentin (Gabapentin) 300 Mg Cap, 300 MG PO TID, MG 09/02/24 Oxycodone W/ Acetaminophen (Percocet 5/325MG) 1 Tab Tb, 2 TAB PO TIDPRN PRN for PAIN SCALE 7 THRU 10, #120 TAB 08/02/23 Magnesium Oxide (Mag-Ox) 400 Mg Tb, 1 TAB PO DAILY PRN 08/01/23 Hydroxychloroquine Sulfate (Hydroxychloroquine Sulfat) 200 Mg Tab, 1 TAB PO DAILY 08/01/23 Leflunomide (Leflunomide) 10 Mg Tab, 1 TAB PO DAILY 08/01/23 Zolpidem Tartrate (Zolpidem Tartrate) 5 Mg Tab, TAB PO HS PRN for FOR INSOMNIA 10/10/20 Atorvastatin Calcium (Lipitor) 20 Mg Tab, 1 TAB PO QPM for HYPERLIPIDEMIA 10/10/20 Trazodone Hcl (Trazodone Hcl) 50 Mg Tab, 50 MG PO DAILY for DEPRESSION 10/10/20 Amitriptyline Hcl (Amitriptyline Hcl) 50 Mg Tab, 1 TAB PO QPM for DEPRESSION 08/27/11 Discontinued Reported Medications Clonidine HCl (Clonidine Hydrochloride) 0.1 Mg Tab, 0.1 MG PO DAILY for HYPERTENSION 10/09/20 Benazepril Hcl (Benazepril Hcl) 40 Mg Tab, 1 TAB PO QAM for HYPERTENSION 08/27/11 Discontinued Scripts Prednisone (Prednisone) 20 Mg Tab, 20 MG PO QAM for 5 Days, #10 MG Prov:KRIS JO MD 08/05/23 Doxycycline Monohydrate (Doxycycline Monohydrate) 100 Mg Tab, 100 MG PO BID for 7 Days, #14 TAB Prov:KRIS JO MD 08/05/23 Information Source: Patient, Relative (Child) Mode of Arrival: Ambulatory Severity: Moderate Timing: Hours Duration: Intermittent Prehospital treatment: None Past Medical History PAST MEDICAL HISTORY: Arthritis, COPD, HTN, NV Past Medical History (Other): Recent cardiologic concerns Surgical History: Cholecystectomy KENNEL KEEPER History: No Pertinent KENNEL KEEPER History Family History Family History: Reviewed,noncontributory to illness Social History Smoker: Cigarettes Alcohol: Denies ETOH Use Drugs: Denies Drug Use Lives In: Home Constitutional: denies: chills, diaphoresis, fatigue, fever, malaise, sweats, weakness, others EENTM: reports: others (Tongue, face and oral swelling); denies: blurred vision, double vision, ear bleeding, ear discharge, ear drainage, ear pain, ear ringing, eye pain, eye redness, hearing loss, mouth pain, mouth swelling, nasal discharge, nose bleeding, nose congestion, nose pain, photophobia, tearing, throat pain, throat swelling, voice changes Respiratory: denies: cough, hemoptysis, orthopnea, SOB at rest, shortness of breath, SOB with excertion, stridor, wheezing, others Cardiovascular: denies: chest pain, dizzy spells, diaphoresis, Dyspnea on exertion, edema, irregular heart beat, left arm pain, lightheadedness, palpitations, PND, syncope, others Gastrointestinal: denies: abdomen distended, abdominal pain, blood streaked bowels, constipated, diarrhea, dysphagia, difficulty swallowing, hematemesis, melena, nausea, poor appetite, poor fluid intake, rectal bleeding, rectal pain, vomiting, others Genitourinary: denies: abnormal vagina bleeding, burning, dyspareunia, dysuria, flank pain, frequency, hematuria, incontinence, pain, , vagina discharge, urgency, others Neurological: denies: dizziness, fainting, headache, left sided numbness, left sided weakness, numbness, paresthesia, pre-existing deficit, right sided numbness, right sided weakness, seizure, speech problems, tingling, tremors, weakness, others Musculoskeletal: denies: back pain, gout, joint pain, joint swelling, muscle pain, muscle stiffness, neck pain, others Integumetry: denies: bruises, change in color, change in hair/nails, dryness, laceration, lesions, lumps, rash, wounds, others Allergic/Immunocompromised: denies: Difficulty Healing, Frequent Infections, Hives, Itching, others Hematologic/Lymphatic: denies: anemia, blood clots, easy bleeding, easy bruising, swollen glands, others Endocrine: denies: excessive hunger, excessive sweating, excessive thirst, excessive urination, flushing, intolerance to cold, intolerance to heat, unexplained weight gain, unexplained weight loss, others Psychiatric: denies: anxiety, bipolar disorder, depression, hopeless, panic disorder, schizophrenia, sleepless, suicidal, others All Other Systems: Reviewed and Negative Physical Exam General Appearance: Mild Distress (Patient was in moderate distress due to anxiety.), Normal HEENT: Normal ENT Inspection, Pharynx Normal, TMs Normal, Other (I was unable to appreciate any definitive facial or tongue swelling. Daughter and patient stated there was some swelling. No airway compromise noted.) Neck: Full Range of Motion, Non-Tender, Normal, Normal Inspection Respiratory: Chest Non-Tender, Lungs Clear, No Accessory Muscle Use, No Respiratory Distress, Normal Breath Sounds Cardiovascular: No Edema, No JVD, No Murmur, No Gallop, Normal Peripheral Pulses, Regular Rate/Rhythm Breast Exam: Deferred Gastrointestinal: No Organomegaly, Non Tender, No Pulsatile Mass, Normal Bowel Sounds, Soft Genitalia: Deferred Pelvic: Deferred Rectal: Deferred Extremities: No calf tenderness, Normal inspection, Normal range of motion Neurologic: Alert, No Motor Deficits, Normal Affect, Normal Mood, No Sensory Deficits Cerebellar Function: Normal Reflexes: Normal Skin: Dry, Normal Color, Warm Lymphatic: No Adenopathy Was a procedure done? Was a procedure done?: No Differential Dx Considerations may include: Anaphylaxis, allergic reaction to medication utilize as directed, allergic reaction X-Ray, Labs, Meds, VS Vital Signs Date Time Temp Pulse Resp B/P (MAP) Pulse Ox O2 Delivery O2 Flow Rate FiO2 09/06/24 16:28 89 19 100 Room Air* 0 21 09/06/24 16:28 97.2 89 19 108/72 (84) 100 97.2 09/06/24 16:03 16 99 Room Air* 0 21 09/06/24 16:03 98.1 90 16 121/80 (94) 99 Lab Test 09/06/24 17:23 09/06/24 16:35 Range/Units Troponin I High Sensitivity 28 </=34 ng/L White Blood Count 5.1 # 4.4-10.8 10^3/uL Red Blood Count 3.70 L 4.0-5.20 10^6/uL Hemoglobin 13.5 # 12.2-16.2 g/dL Hematocrit 37.4 # 36.0-46.0 % Mean Corpuscular Volume 101.0 H 80.0-100.0 fL Mean Corpuscular Hemoglobin 36.5 H 28.0-32.0 pg Mean Corpuscular Hemoglobin Concent 36.2 H 32.0-36.0 g/dL Red Cell Distribution Width 16.1 H 11.8-14.3 % Platelet Count 197 140-450 10^3/uL Mean Platelet Volume 9.2 6.9-10.8 fL Neutrophils (%) (Auto) 44.8 37.0-80.0 % Lymphocytes (%) (Auto) 44.5 10.0-50.0 % Monocytes (%) (Auto) 8.4 0.0-12.0 % Eosinophils (%) (Auto) 1.7 0.0-7.0 % Basophils (%) (Auto) 0.6 0.0-2.0 % Neutrophils # (Auto) 2.3 1.6-8.6 10 ^3/uL Lymphocytes # (Auto) 2.3 0.4-5.4 10 ^3/uL Monocytes # (Auto) 0.4 0-1.3 10 ^3/uL Eosinophils # (Auto) 0.1 0-0.8 10 ^3/uL Basophils # (Auto) 0 0-0.2 10 ^3/uL Nucleated Red Blood Cells 0.3 % Sodium Level 138 136-145 mmol/L Potassium Level 3.8 3.5-5.1 mmol/L Chloride Level 98 98-107 mmol/L Carbon Dioxide Level 32 H 20-31 mmol/L Anion Gap 8 5-15 Blood Urea Nitrogen 19 9-23 mg/dL Creatinine 1.54 H 0.550-1.02 mg/dL Glomerular Filtration Rate Calc 37 >90 mL/min BUN/Creatinine Ratio 12.3 10.0-20.0 Serum Glucose 121 H 74-106 mg/dL Lactic Acid Level 1.5 0.4-2.0 mmol/L Calcium Level 10.1 8.7-10.4 mg/dL Total Bilirubin 1.0 0.2-1.0 mg/dL Aspartate Amino Transferase (AST) 28 13-40 U/L Alanine Aminotransferase (ALT) 31 7-40 U/L Alkaline Phosphatase 92 46-116 U/L B-Type Natriuretic Peptide 258.86 0-100 pg/mL Total Protein 7.3 5.7-8.2 g/dL Albumin 4.4 3.2-4.8 g/dL Current Medications Medications (Trade) Dose Ordered Sig/Rakan Route Start Time Stop Time Status Last Admin Dexamethasone Sodium Phosphate (Decadron Injection) 10 mg ONCE ONCE IV 09/06/24 16:30 09/06/24 16:31 DC 09/06/24 16:23 X-Ray, Labs, Meds, VS Comment Patient stated good relief of symptoms status post medication dispensed. All studies performed the ED were evaluated by me personally. Serum laboratories were unremarkable for any acute systemic process. EKG was unremarkable for any acute NV event. Discussed the case with the patient's daughter. I had initially intended on admitting the patient for re-evaluation due to poor response to medication, but patient and daughter stated they wanted to leave the facility and follow up with their primary care provider tomorrow. Advised both that they are more than welcome to leave the facility for follow up tomorrow, but if they have any additional concerns, please return to ED for continued evaluation and management. Time of 1ST Reevaluation: 19:27 Reevaluation 1ST: Improved Consultation: PCP Patient Education/Counseling: Diagnosis, Treatment Family Education/Counseling: Diagnosis, Treatment, No Family Present Departure 1 Departure Time of Disposition: 19:28 Impression: Primary Impression: Allergic reaction caused by a drug Disposition: 01 HOME / SELF CARE / HOMELESS Condition: Stable Additional Instructions: Advised patient to cease Jardiance use and follow up with primary care provider tomorrow for re-evaluation and medication management. Discharged With: Self, Relative Critical Care Note Critical Care Time?: No Stability Stability form required: No Heart Score Heart Score: Heart Score Response (Comments) Value History Slightly Suspicious 0 EKG Repolarization Disturb 1 Age >65 2 Risk Factors 1 or 2 risk factors 1 Troponin Normal limit 0 Total 4 I personally scribed for DIPAK CONDE PAC ([email or web address]) on 09/06/24 at 15:54. Electronically submitted by Emilia Murphy ([email or web address]). I personally scribed for DIPAK CONDE PAC ([email or web address]) on 09/06/24 at 16:02. Electronically submitted by Emilia Murphy ([email or web address]). DIPAK CONDE PAC Sep 06, 2024 15:54
[2024-09-06] MEDS: DexAMETHasone SOD PHOS 10MG/1ML VIAL INJ IM ONE (16:19)
[2024-09-06] MEDS: DexAMETHasone SOD PHOS 10MG/1ML VIAL INJ IV ONE (16:23)
[2024-09-06 16:28] VITALS: BP 108/72; PULSE 89; RESP 19; TEMP 97.2; O2SAT 100
[2024-09-06 17:26] LABS: Alanine Aminotransferase 31 U/L (7-40); Albumin 4.4 g/dL (3.2-4.8); Alkaline Phosphatase 92 U/L (46-116); Anion Gap 8 (5-15); Aspartate Aminotransferase 28 U/L (13-40); BUN/Creatinine Ratio 12.3 (10.0-20.0); Blood Urea Nitrogen 19 mg/dL (9-23); Calcium 10.1 mg/dL (8.7-10.4); Chloride 98 mmol/L (98-107); Potassium 3.8 mmol/L (3.5-5.1); Sodium 138 mmol/L (136-145); Total Protein 7.3 g/dL (5.7-8.2)
[2024-09-06 17:27] LABS: Carbon Dioxide 32 mmol/L (20-31); Glucose 121 mg/dL (74-106)
[2024-09-06 17:42] LABS: Basophils # (auto) 0 10 ^3/uL (0-0.2); Basophils % (auto) 0.6 % (0.0-2.0); Eosinophils # (auto) 0.1 10 ^3/uL (0-0.8); Eosinophils % (auto) 1.7 % (0.0-7.0); Hematocrit 37.4 % (36.0-46.0); Hemoglobin 13.5 g/dL (12.2-16.2); Lymphocytes # (auto) 2.3 10 ^3/uL (0.4-5.4); Lymphocytes % (auto) 44.5 % (10.0-50.0); Mean Corpuscular Hemoglobin 36.5 pg (28.0-32.0); Mean Corpuscular Hgb Conc. 36.2 g/dL (32.0-36.0); Monocytes # (auto) 0.4 10 ^3/uL (0-1.3); Monocytes % (auto) 8.4 % (0.0-12.0); Neutrophils # (auto) 2.3 10 ^3/uL (1.6-8.6); Neutrophils % (auto) 44.8 % (37.0-80.0); Nucleated Red Blood Cells % 0.3 %; Platelet Count (auto) 197 10^3/uL (140-450); Red Cell Distribution Width 16.1 % (11.8-14.3); White Blood Cell 5.1 10^3/uL (4.4-10.8)
== END 2024-09-06 20:11 | disposition home or self-care (01) ==
LOC: ER 15:21
DX: R22.0 Localized swelling, mass and lump, head (principal); T50.905A Adverse effect of unspecified drugs, medicaments and biological substances, initial encounter; M19.90 Unspecified osteoarthritis, unspecified site; J44.9 Chronic obstructive pulmonary disease, unspecified; I10 Essential (primary) hypertension; I25.2 Old myocardial infarction; F17.210 Nicotine dependence, cigarettes, uncomplicated; Z90.49 Acquired absence of other specified parts of digestive tract; Z79.899 Other long term (current) drug therapy; Y92.89 Other specified places as the place of occurrence of the external cause
CPT/HCPCS: 36415; 80053; 83605; 83880; 84484; 85025; 96374; 99283; J1100